=== PATIENT | male | born 1985 | race African-American/Black ===

== ENCOUNTER 2023-12-07 09:18 | Emergency (ER) | payer MEDICAID ==
[~2023-12-07] VITALS: Ht 172.7 cm; Wt 67.9 kg
[2023-12-07 09:38] VITALS: BP 97/56; PULSE 76; RESP 18; TEMP 97.9; O2SAT 97
== END 2023-12-07 10:11 | disposition home or self-care (01) ==
LOC: ER 09:18
DX: R19.03 Right lower quadrant abdominal swelling, mass and lump (principal)

== ENCOUNTER 2024-02-11 10:30 | Emergency (ER) | payer MEDICAID ==
[~2024-02-11] VITALS: Ht 175.3 cm; Wt 69.7 kg
[2024-02-11 11:00] VITALS: BP 130/89; PULSE 95; RESP 16; TEMP 98; O2SAT 93
== END 2024-02-11 12:10 | disposition left against medical advice (07) ==
LOC: ER 10:34
DX: S09.8XXA Other specified injuries of head, initial encounter (principal); W10.9XXA Fall (on) (from) unspecified stairs and steps, initial encounter; Y93.89 Activity, other specified; Y92.89 Other specified places as the place of occurrence of the external cause; Y99.8 Other external cause status

== ENCOUNTER 2024-06-30 08:32 | Inpatient (IN) | payer MEDICAID ==
[~2024-06-30] VITALS: Ht 172.7 cm; Wt 76.9 kg
--- NOTE | 2024-06-30 08:47 | ED.PDOC ---
GI ASSESSMENT HPI Comments 39M BIBA w/ no prior Hx associated to the c/c of N/V/D. Pt reports that he has been having N/V/D, since Monday night of 06/28/24. Pt notes that he stopped drinking alcohol but stated that he did drink alcohol night. EMS report the pt stating to them that he had dark Hematochezia and Hematemesis. Social Hx of rare alcohol use, and marijuana use, but denies tobacco use. Denies chills, fever, SOB, CP or other associated symptoms, modifiers, or recent injuries at this time. Chief Complaint: Abdominal Pain Time Seen by MD: 08:35 Primary Care Provider: unknown Reviewed Notes: Nurses Notes, Developer Analyst Notes, Medications, Allergies Allergies: Coded Allergies: NO KNOWN ALLERGIES (Unverified , 10/29/14) Information Source: Patient, Emergency Med Personnel Mode of Arrival: EMS Timing: Days Duration: Since onset, Days Prehospital treatment: None Quality: None Vomitus: Bilious, Bloody (Dark red) Stool: Blood Streaked (Dark red), Loose Severity: Moderate Recent: None Recent Hx of: None Pain Location: None Associated sign and symptoms: Nausea, Vomiting, Diarrhea, Hematemesis, Hematochezia Past Medical History PAST MEDICAL HISTORY: Denies Surgical History: Denies all surgeries Family History Family History: Reviewed,noncontributory to illness, Unknown Social History Smoker: Non-Smoker Alcohol: Rarely Drugs: Marijuana Lives In: Home Constitutional: denies: chills, diaphoresis, fatigue, fever, malaise, sweats, weakness, others EENTM: denies: blurred vision, double vision, ear bleeding, ear discharge, ear drainage, ear pain, ear ringing, eye pain, eye redness, hearing loss, mouth pain, mouth swelling, nasal discharge, nose bleeding, nose congestion, nose pain, photophobia, tearing, throat pain, throat swelling, voice changes, others Respiratory: denies: cough, hemoptysis, orthopnea, SOB at rest, shortness of breath, SOB with excertion, stridor, wheezing, others Cardiovascular: denies: chest pain, dizzy spells, diaphoresis, Dyspnea on exertion, edema, irregular heart beat, left arm pain, lightheadedness, palpitations, PND, syncope, others Gastrointestinal: reports: blood streaked bowels, diarrhea, hematemesis, nausea , vomiting; denies: abdomen distended, abdominal pain, constipated, dysphagia, difficulty swallowing, melena, poor appetite, poor fluid intake, rectal bleeding, rectal pain, others Genitourinary: denies: burning, dysuria, flank pain, frequency, hematuria, incontinence, penile discharge, penile sore, pain, testicle pain, testicle swelling, urgency, others Neurological: denies: dizziness, fainting, headache, left sided numbness, left sided weakness, numbness, paresthesia, pre-existing deficit, right sided numbness, right sided weakness, seizure, speech problems, tingling, tremors, weakness, others Musculoskeletal: denies: back pain, gout, joint pain, joint swelling, muscle pain, muscle stiffness, neck pain, others Integumetry: denies: bruises, change in color, change in hair/nails, dryness, laceration, lesions, lumps, rash, wounds, others Allergic/Immunocompromised: denies: Difficulty Healing, Frequent Infections, Hives, Itching, others Hematologic/Lymphatic: denies: anemia, blood clots, easy bleeding, easy bruising, swollen glands, others Endocrine: denies: excessive hunger, excessive sweating, excessive thirst, excessive urination, flushing, intolerance to cold, intolerance to heat, unexplained weight gain, unexplained weight loss, others Psychiatric: denies: anxiety, bipolar disorder, depression, hopeless, panic disorder, schizophrenia, sleepless, suicidal, others All Other Systems: Reviewed and Negative Physical Exam General Appearance: Moderate Distress, Normal HEENT: Normal ENT Inspection, Pharynx Normal, TMs Normal Neck: Full Range of Motion, Non-Tender, Normal, Normal Inspection Respiratory: Chest Non-Tender, Lungs Clear, No Accessory Muscle Use, No Respiratory Distress, Normal Breath Sounds Cardiovascular: No Edema, No JVD, No Murmur, No Gallop, Normal Peripheral Pulses, Regular Rate/Rhythm Breast Exam: Deferred Gastrointestinal: No Organomegaly, Non Tender, No Pulsatile Mass, Normal Bowel Sounds, Soft Genitalia: Deferred Pelvic: Deferred Rectal: Deferred Extremities: No calf tenderness, Normal capillary refill, Normal inspection, Normal range of motion, Non-tender, No pedal edema Musculoskeletal : Apperance: Normal Neurologic: Alert, enamel pulverizer II-XII nml as Tested, No Motor Deficits, Normal Affect, Normal Mood, No Sensory Deficits Cerebellar Function: NOT DONE Reflexes: NOT DONE Skin: Dry, Normal Color, Warm Peripheral Pulses: 3+ Radial (R), 3+ Radial (L) Lymphatic: No Adenopathy Was a procedure done? Was a procedure done?: No GI differential Dx Differential Diagnosis: Constipation, Diverticular disease, Esophagitis, Gastritis/PUD, Gastroenteritis X-Ray, Labs, Meds, VS Vital Signs Date Time Temp Pulse Resp B/P (MAP) Pulse Ox O2 Delivery O2 Flow Rate FiO2 06/30/24 09:37 78 18 122/74 06/30/24 09:07 125 24 115/79 06/30/24 08:34 97.7 127 18 114/80 (91) 100 Lab Test 06/30/24 08:57 Range/Units White Blood Count 11.8 H 4.4-10.8 10^3/uL Red Blood Count 3.19 L 4.5-5.90 10^6/uL Hemoglobin 9.8 L 13.5-17.5 g/dL Hematocrit 29.5 L 41.0-53.0 % Mean Corpuscular Volume 92.5 80.0-100.0 fL Mean Corpuscular Hemoglobin 30.8 28.0-32.0 pg Mean Corpuscular Hemoglobin Concent 33.3 32.0-36.0 g/dL Red Cell Distribution Width 13.5 11.8-14.3 % Platelet Count 249 140-450 10^3/uL Mean Platelet Volume 9.7 6.9-10.8 fL Neutrophils (%) (Auto) 84.0 H 37.0-80.0 % Lymphocytes (%) (Auto) 10.4 10.0-50.0 % Monocytes (%) (Auto) 5.4 0.0-12.0 % Eosinophils (%) (Auto) 0.0 0.0-7.0 % Basophils (%) (Auto) 0.2 0.0-2.0 % Neutrophils # (Auto) 9.9 H 1.6-8.6 10 ^3/uL Lymphocytes # (Auto) 1.2 0.4-5.4 10 ^3/uL Monocytes # (Auto) 0.6 0-1.3 10 ^3/uL Eosinophils # (Auto) 0 0-0.8 10 ^3/uL Basophils # (Auto) 0 0-0.2 10 ^3/uL Nucleated Red Blood Cells 0.0 % Sodium Level Pending Potassium Level Pending Chloride Level Pending Carbon Dioxide Level Pending Anion Gap Pending Blood Urea Nitrogen Pending Creatinine Pending Glomerular Filtration Rate Calc Pending BUN/Creatinine Ratio Pending Serum Glucose Pending Calcium Level Pending Current Medications Medications (Trade) Dose Ordered Sig/Janine Route Start Time Stop Time Status Last Admin Ondansetron HCl (Zofran) 4 mg ONCE ONCE IV 06/30/24 08:45 06/30/24 08:46 DC 06/30/24 09:07 Sodium Chloride 1,000 ml @ 1,000 mls/hr Q1H ONCE IVB 06/30/24 08:45 06/30/24 09:44 DC 06/30/24 09:05 Morphine Sulfate 4 mg ONCE ONCE IV 06/30/24 08:45 06/30/24 08:46 DC 06/30/24 09:07 Patient alert. Came in because of nausea vomiting. Uses marijuana Vitals stable. Abdomen is soft nontender. Establish intravenous access. Was given fluids. Was given pain medication. Was given Zofran. Reviewed his previous visit. WBC slightly elevated. Anemia. GI consultation for endoscopy. Counseled patient on effects of smoking marijuana for 15 minutes Explained to the patient. Continue cardiac monitoring. Time of 1ST Reevaluation: 09:05 Reevaluation 1ST: Unchanged Patient Education/Counseling: Diagnosis, Treatment, Prognosis Family Education/Counseling: No Family Present Departure 1 Departure Time of Disposition: 09:51 Impression: Primary Impression: Severe anemia Additional Impression: Gastroenteritis Disposition: 09 ADMITTED INPATIENT Admit to: Med Surg Condition: Guarded Critical Care Note Critical Care Time?: No Stability Stability form required: No I personally scribed for REYNA JERONIMO MD ([email or web address]) on 06/30/24 at 08:47. Electronically submitted by Jason Hayden ([email or web address]). REYNA JERONIMO MD Jun 30, 2024 08:47
[2024-06-30] MEDS: SODIUM CHLORIDE 0.9% 1,000 ML IVB ONE (09:05)
[2024-06-30] MEDS: ONDANSETRON HCL 4 MG/2 ML VIAL IV ONE (09:07)
[2024-06-30] MEDS: MORPHINE SULFATE 4 MG/ML SYR/VIAL IV ONE (09:07)
[2024-06-30 09:39] VITALS: PULSE 125; RESP 22; O2SAT 96
[2024-06-30 09:40] LABS: Basophils # (auto) 0 10 ^3/uL (0-0.2); Basophils % (auto) 0.2 % (0.0-2.0); Eosinophils # (auto) 0 10 ^3/uL (0-0.8); Hematocrit 29.5 % (41.0-53.0); Hemoglobin 9.8 g/dL (13.5-17.5); Lymphocytes # (auto) 1.2 10 ^3/uL (0.4-5.4); Lymphocytes % (auto) 10.4 % (10.0-50.0); Mean Corpuscular Hemoglobin 30.8 pg (28.0-32.0); Mean Corpuscular Hgb Conc. 33.3 g/dL (32.0-36.0); Mean Corpuscular Volume 92.5 fL (80.0-100.0); Monocytes # (auto) 0.6 10 ^3/uL (0-1.3); Monocytes % (auto) 5.4 % (0.0-12.0); Neutrophils # (auto) 9.9 10 ^3/uL (1.6-8.6); Platelet Count (auto) 249 10^3/uL (140-450); Red Blood Cells 3.19 10^6/uL (4.5-5.90); Red Cell Distribution Width 13.5 % (11.8-14.3); White Blood Cell 11.8 10^3/uL (4.4-10.8)
[2024-06-30 09:49] LABS: Chloride 99 mmol/L (98-107); Potassium 3.8 mmol/L (3.5-5.1); Sodium 136 mmol/L (136-145)
[2024-06-30 09:50] LABS: Anion Gap 13 (5-15); Carbon Dioxide 24 mmol/L (20-31)
[2024-06-30 09:51] LABS: Calcium 9.4 mg/dL (8.7-10.4)
[2024-06-30 09:56] LABS: BUN/Creatinine Ratio 12.1 (10.0-20.0); Blood Urea Nitrogen 15 mg/dL (9-23)
[2024-06-30 09:58] LABS: Glucose 224 mg/dL (74-106)
[2024-06-30 10:55] VITALS: PULSE 96; RESP 22; O2SAT 98
--- NOTE | 2024-06-30 13:53 | DVH ---
Exam: CT CT AB PEL WO CON-NO ORAL OR IV History: abd pain Comparison Study: None Technique: Multidetector spiral CT of the abdomen was performed from lung bases to pubic symphysis. Imaging was performed without IV contrast. Axial, coronal and sagittal multiplanar reformats were ob tained from the axial data set by the technologist. Radiation Dose : 1. Abdomen/Pelvis: CTDIvol 6.1 mGy, DLP 326.21 mGy*cm. Findings: Evaluation of solid organs is limited due to lack of intravenous contrast use. Lung Bases: No acute or significant lung base finding. Normal heart size. No pleural or pericardial effusion. Liver: The liver is normal in size. No focal lesions. Gallbladder and Biliary Tree: Unremarkable Spleen: Unremarkable Pancreas: The pancreas is grossly normal in appearance. Adrenal Glands: Unremarkable Kidneys: Kidneys are grossly normal without calculi or hydronephrosis. Bladder: Grossly unremarkable for degree of distention. Bowel: The stomach is grossly normal in appearance. Small bowel and colon are normal in caliber and d istribution. The appendix is not visualized; however, no secondary findings of acute appendicitis id entified. Ascites: Absent Lymphadenopathy: No mesenteric, retroperitoneal or periportal lymphadenopathy. Abdominal Wall and Mesentery: Unremarkable. Vasculature: The visualized abdominal aorta is normal in size and caliber. Evaluation of abdominal a nd pelvic vessels is limited due to lack of intravenous contrast. Pelvic Organs: Unremarkable Musculoskeletal: No aggressive focal bony lesions, acute fractures or dislocation. IMPRESSION: 1. No acute abdominal or pelvic findings. Radiation optimization: All CT scans at this facility use at least one of these dose optimization unruly hniques: automated exposure control mA and/or kV adjustment per patient size (includes targeted exam s where dose is matched to clinical indication) or iterative reconstruction.
[2024-06-30] MEDS ORDERED: ONDANSETRON HCL 4 MG/2 ML VIAL IV PRN (14:00)
[2024-06-30] MEDS ORDERED: ACETAMINOPHEN 325 MG TAB PO PRN (14:00)
--- NOTE | 2024-06-30 14:04 | DVHHP2 ---
History of Present Illness Reason for Visit: Nausea vomiting and diarrhea History of Present Illness This 39-year-old male with no significant medical history presents in the ED with a chief complaint nausea, vomiting, diarrhea x2 days. Patient reports symptoms is associated with generalized abdominal pain, hematemesis, and melena. Patient states drinks vodka every week for many years. He also admits to marijuana use. Past Medical History Denies Past Surgical History Fibula Family History Reviewed, non-contributory to the management of this case. ALCOHOL: occassional Drugs: Marijuana Review of Systems Constitutional: Yes: Weakness, Malaise; No: Fever, Chills, Sweats, Other Eyes: No: Pain, Vision change, Conjunctivae inflammation, Eyelid inflammation, Other, Redness ENT: No: Ear pain, Ear discharge, Nose pain, Nose discharge, Nose congestion, Mouth pain, Mouth swelling, Throat pain, Throat swelling, Other Respiratory: No: Cough, Dry, Shortness of breath, SOB with excertion, Wheezing, Hemoptysis, Pleuritic Pain, Sputum, Wheezing, Other Cardiovascular: No: Chest Pain, Palpitations, Orthopnea, Paroxysmal Noc. Dyspnea, Edema, Lt Headedness, Other Gastrointestinal: Nausea, Vomiting, Abdominal Pain, Diarrhea, Melena, Hematochezia; No: Constipation, Other Genitourinary: No Dysuria, No Frequency, No Incontinence, No Hematuria, No Retention, No Other Musculoskeletal: No: other, neck pain, shoulder pain, arm pain, back pain, hand pain, leg pain, foot pain Skin: No: Rash, Lesions, Jaundice, Bruising, Other Neurological: No: Weakness, Numbness, Incoordination, Change in speech, Confusion, Seizures, Other Allergies: Coded Allergies: NO KNOWN ALLERGIES (Unverified , 10/29/14) Medications Current Medications Medications Dose Ordered Sig/Janine Route Start Time Stop Time Status Last Admin Dose Admin Pantoprazole Sodium 40 mg DAILY IV 07/01/24 10:00 UNV Exam Vital Signs Vital Signs Date Time Temp Pulse Resp B/P (MAP) Pulse Ox O2 Delivery O2 Flow Rate FiO2 06/30/24 13:37 98 18 119/47 (71) 100 06/30/24 10:55 Room Air* 0 21 06/30/24 10:52 98.3 98.3 General Appearance: Alert, Oriented X3, Cooperative HEENT: Atraumatic, PERRLA, EOMI, Mucous membr. moist/pink Respiratory: Clear to auscultation, Normal air movement Cardiovascular: Regular rate, Normal S1, Normal S2 Abdominal: Normal bowel sounds, Soft, Other (Tenderness in epigastric) Extremities: No clubbing, No cyanosis, No edema, Normal pulses, No tenderness/swelling Skin: No rashes, No breakdown, No significant lesion Neuro: Normal gait, Normal speech, Strength at 5/5 X4 ext, Normal tone Psych/Mental Status: Mental status NL Labs/Xrays Labs Test 06/30/24 08:57 Range/Units White Blood Count 11.8 H 4.4-10.8 10^3/uL Red Blood Count 3.19 L 4.5-5.90 10^6/uL Hemoglobin 9.8 L 13.5-17.5 g/dL Hematocrit 29.5 L 41.0-53.0 % Mean Corpuscular Volume 92.5 80.0-100.0 fL Mean Corpuscular Hemoglobin 30.8 28.0-32.0 pg Mean Corpuscular Hemoglobin Concent 33.3 32.0-36.0 g/dL Red Cell Distribution Width 13.5 11.8-14.3 % Platelet Count 249 140-450 10^3/uL Mean Platelet Volume 9.7 6.9-10.8 fL Neutrophils (%) (Auto) 84.0 H 37.0-80.0 % Lymphocytes (%) (Auto) 10.4 10.0-50.0 % Monocytes (%) (Auto) 5.4 0.0-12.0 % Eosinophils (%) (Auto) 0.0 0.0-7.0 % Basophils (%) (Auto) 0.2 0.0-2.0 % Neutrophils # (Auto) 9.9 H 1.6-8.6 10 ^3/uL Lymphocytes # (Auto) 1.2 0.4-5.4 10 ^3/uL Monocytes # (Auto) 0.6 0-1.3 10 ^3/uL Eosinophils # (Auto) 0 0-0.8 10 ^3/uL Basophils # (Auto) 0 0-0.2 10 ^3/uL Nucleated Red Blood Cells 0.0 % Sodium Level 136 136-145 mmol/L Potassium Level 3.8 3.5-5.1 mmol/L Chloride Level 99 98-107 mmol/L Carbon Dioxide Level 24 20-31 mmol/L Anion Gap 13 5-15 Blood Urea Nitrogen 15 9-23 mg/dL Creatinine 1.24 0.700-1.30 mg/dL Glomerular Filtration Rate Calc 75 >90 mL/min BUN/Creatinine Ratio 12.1 10.0-20.0 Serum Glucose 224 H 74-106 mg/dL Calcium Level 9.4 8.7-10.4 mg/dL PROCEDURE(s): ABPL - CT AB PEL WO CON-NO ORAL OR IV REASON: abd pain ORDER NUMBER(s): [id number], ACCESSION NUMBER(s): [id number] Exam: CT CT AB PEL WO CON-NO ORAL OR IV History: abd pain Comparison Study: None Technique: Multidetector spiral CT of the abdomen was performed from lung bases to pubic symphysis. Imaging was performed without IV contrast. Axial, coronal and sagittal multiplanar reformats were obtained from the axial data set by the technologist. Radiation Dose : 1. Abdomen/Pelvis: CTDIvol 6.1 mGy, DLP 326.21 mGy*cm. Findings: Evaluation of solid organs is limited due to lack of intravenous contrast use. Lung Bases: No acute or significant lung base finding. Normal heart size. No pleural or pericardial effusion. Liver: The liver is normal in size. No focal lesions. Gallbladder and Biliary Tree: Unremarkable Spleen: Unremarkable Pancreas: The pancreas is grossly normal in appearance. Adrenal Glands: Unremarkable Kidneys: Kidneys are grossly normal without calculi or hydronephrosis. Bladder: Grossly unremarkable for degree of distention. Bowel: The stomach is grossly normal in appearance. Small bowel and colon are normal in caliber and distribution. The appendix is not visualized; however, no secondary findings of acute appendicitis identified. Ascites: Absent Lymphadenopathy: No mesenteric, retroperitoneal or periportal lymphadenopathy. Abdominal Wall and Mesentery: Unremarkable. Vasculature: The visualized abdominal aorta is normal in size and caliber. Evaluation of abdominal and pelvic vessels is limited due to lack of intravenous contrast. Pelvic Organs: Unremarkable Musculoskeletal: No aggressive focal bony lesions, acute fractures or dislocation. IMPRESSION: 1. No acute abdominal or pelvic findings. Assessment/Plan Assessment/Plan # Rule out GI bleed # acute abdominal pain # possible colitis Admit to medical unit CT abd/pelvis pending NPO except meds PPI GI consult Empiric antibiotic ceftriaxone and metronidazole Stool for occult blood Check etoh # cannabis hyperemesis syndrome # marijuana use # N/V/D IV fluid UDS Antiemetics Marijuana use cessation counseled Medical plan discussed with patient and RN Plan discussed with: Patient My Orders Orders - VILLA WILDER Procedure Category Date Status Time Ct Ab Pel Wo Con-No CT 06/30/24 Resulted Oral Or Iv 12:04 Urine Ethanol LAB 06/30/24 Logged 13:48 * Gi [facility] [employer]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 CONS 06/30/24 Transmitted 13:48 Pantoprazole PHA 07/01/24 Logged (Protonix) 10:00 Pantoprazole PHA 06/30/24 Logged (Protonix) 14:00 Metoclopramide PHA 06/30/24 Logged Injection (Reglan 14:00 Urinalysis LAB 06/30/24 Logged 13:48 Stool Occult Blood LAB 06/30/24 Logged 13:51 Stool Bacterial KELLY 06/30/24 Logged Culture 13:51 Clostridium Difficile KELLY 06/30/24 Logged Toxin 13:51 Admit ADMIT 06/30/24 Verified 13:52 Code Status CODE 06/30/24 Verified 13:52 0.9% Ns 1000 Ml PHA 06/30/24 Verified 14:00 Hydrocodone-Acet PHA 06/30/24 Verified 5/325mg Tab (Garretson 14:00 Ondansetron Hcl PHA 06/30/24 Verified (Zofran) 14:00 Complete Blood Count LAB 07/01/24 Verified 04:00 Condition: Fair LOBITO 06/30/24 Verified 13:52 Acetaminophen Tablet PHA 06/30/24 Verified (Tylenol Tablet) 14:00 Morphine Sulfate PHA 06/30/24 Verified Injection 14:00 Basic Metabolic Panel LAB 07/01/24 Verified 04:00 Npo Except For LOBITO 06/30/24 Verified Medications 13:52 Date of Service: Jun 30, 2024 Billing Provider: VILLA WILDER Common Visit Codes: [id number] INP/OBS CARE (HIGH) VILLA WILDER Jun 30, 2024 14:04
[2024-06-30 14:31] LABS: Albumin 4.1 g/dL (3.2-4.8)
--- NOTE | 2024-06-30 14:31 | DVHINCON2 ---
Date of service: Jun 30, 2024 Referring Physician ray Matson Reason for Consultation Abdominal pain nausea vomiting diarrhea History of Present Illness This 39-year-old male presented with complaints of abdominal pain nausea vomiting diarrhea for about more than three days since Monday Discussed a moderate heavy drinking and had stopped for some time but restarted again tonight No history of Any unusual food ingestion no history of any fever chills or other systemic symptoms Had some mild hematemesis and hematochezia Past Medical History Unremarkable Past Surgical History None Family History Cancer in father and mother details unknown Social History Smoking including marijuana and drinking Allergies: Coded Allergies: NO KNOWN ALLERGIES (Unverified , 10/29/14) Current Medications Current Medications Medications (Trade) Dose Ordered Sig/Janine Route PRN Reason Start Time Stop Time Status Last Admin Pantoprazole Sodium (Protonix) 40 mg DAILY IV 07/01/24 10:00 UNV Sodium Chloride 1,000 ml @ 100 mls/hr Q10H IV 06/30/24 14:00 UNV Acetaminophen/ Hydrocodone Bitart ([place] 5/325MG Tab) 1 tab Q4HP PRN PO MODERATE PAIN (4-6 PAIN SCALE) 06/30/24 14:00 UNV Ondansetron HCl (Zofran) 4 mg Q4HP PRN IV NAUSEA / VOMITING 06/30/24 14:00 UNV Acetaminophen (Tylenol Tablet) 650 mg Q6HP PRN PO PAIN SCALE 1-3 OR TEMP>100.4 06/30/24 14:00 UNV Morphine Sulfate 2 mg Q4HPRN PRN IV SEVERE PAIN (7-10 PAIN SCALE) 06/30/24 14:00 UNV Ceftriaxone Sodium 50 ml @ 100 mls/hr DAILY@09 IV 07/01/24 09:00 UNV Metronidazole 100 ml @ 100 mls/hr Q8HR IV 06/30/24 22:00 UNV Review of Systems Noncontributory Vital Signs Vital Signs Date Time Temp Pulse Resp B/P (MAP) Pulse Ox O2 Delivery O2 Flow Rate FiO2 06/30/24 13:37 98 18 119/47 (71) 100 06/30/24 10:55 Room Air* 0 21 06/30/24 10:52 98.3 98.3 Physical Exam Originally built and nourished male in no acute distress but uncomfortable from the pain Vitals stable HEENT examination unremarkable Lungs clear Cardiovascular unremarkable Abdomen soft mild tenderness in the epigastrium and both lower quadrants No rigidity no guarding no masses bowel sounds norm al Extremities no edema Neuro grossly intact Labs/Diagnostic Data Labs Test 06/30/24 08:57 Range/Units White Blood Count 11.8 H 4.4-10.8 10^3/uL Red Blood Count 3.19 L 4.5-5.90 10^6/uL Hemoglobin 9.8 L 13.5-17.5 g/dL Hematocrit 29.5 L 41.0-53.0 % Mean Corpuscular Volume 92.5 80.0-100.0 fL Mean Corpuscular Hemoglobin 30.8 28.0-32.0 pg Mean Corpuscular Hemoglobin Concent 33.3 32.0-36.0 g/dL Red Cell Distribution Width 13.5 11.8-14.3 % Platelet Count 249 140-450 10^3/uL Mean Platelet Volume 9.7 6.9-10.8 fL Neutrophils (%) (Auto) 84.0 H 37.0-80.0 % Lymphocytes (%) (Auto) 10.4 10.0-50.0 % Monocytes (%) (Auto) 5.4 0.0-12.0 % Eosinophils (%) (Auto) 0.0 0.0-7.0 % Basophils (%) (Auto) 0.2 0.0-2.0 % Neutrophils # (Auto) 9.9 H 1.6-8.6 10 ^3/uL Lymphocytes # (Auto) 1.2 0.4-5.4 10 ^3/uL Monocytes # (Auto) 0.6 0-1.3 10 ^3/uL Eosinophils # (Auto) 0 0-0.8 10 ^3/uL Basophils # (Auto) 0 0-0.2 10 ^3/uL Nucleated Red Blood Cells 0.0 % Sodium Level 136 136-145 mmol/L Potassium Level 3.8 3.5-5.1 mmol/L Chloride Level 99 98-107 mmol/L Carbon Dioxide Level 24 20-31 mmol/L Anion Gap 13 5-15 Blood Urea Nitrogen 15 9-23 mg/dL Creatinine 1.24 0.700-1.30 mg/dL Glomerular Filtration Rate Calc 75 >90 mL/min BUN/Creatinine Ratio 12.1 10.0-20.0 Serum Glucose 224 H 74-106 mg/dL Calcium Level 9.4 8.7-10.4 mg/dL Plasma/Serum Blood Alcohol 4.6 <10 mg/dL Assessment 39-year-old male with history of moderate drinking and some smoking marijuana etc. admitted with complaints of nausea vomiting and diarrhea no history of any unusual food ingestion no fevers symptoms systemic symptoms no other URI symptoms. Physical examination showed there was tenderness in the epigastrium and both lower quadrants. Labs were essentially unremarkable except for slightly increased glucose white count and hemoglobin is normal CT scan showed no gross abnormalities but done without contrast Clinical impression Probable gastroenteritis Possible mild pancreatitis or peptic ulcer can not be excluded Plan/Recommendation Liver panel Lipase Stool studies for O&P and C&S if diarrhea persists Check on the blood sugars Supportive treatment with IV fluids IV Protonix and symptomatic treatment May need further GI intervention if bleeding or other symptoms persist Thank you Dr. Corona Layne discussed with: Patient IRISH CHRISTIANSON MD Jun 30, 2024 14:31
[2024-06-30 14:32] LABS: Bilirubin, Direct 0.2 mg/dL (<0.3); Bilirubin, Total 0.5 mg/dL (0.2-1.0); Total Protein 5.9 g/dL (5.7-8.2)
[2024-06-30] MEDS: SODIUM CHLORIDE 0.9% 1,000 ML IV SCH (15:01)
[2024-06-30] MEDS: METOCLOPRAMIDE HCL 5MG/ml INJ 2ml VIAL IV ONE (15:17)
[2024-06-30] MEDS: cefTRIAXone 1GM/50ML D5W 50 ML IV ONE (15:17)
[2024-06-30] MEDS: PANTOPRAZOLE 40 MG/10 ML VIAL INJ IV ONE (15:17)
[2024-06-30] MEDS: metroNIDAZOLE 500MG/100ML 100 ML IV ONE (16:21)
[2024-06-30] MEDS: metroNIDAZOLE 500MG/100ML 100 ML IV SCH (22:35)
[2024-07-01 06:54] LABS: Calcium 9.2 mg/dL (8.7-10.4); Chloride 105 mmol/L (98-107); Sodium 139 mmol/L (136-145)
[2024-07-01 06:55] LABS: Anion Gap 8 (5-15); Carbon Dioxide 26 mmol/L (20-31)
[2024-07-01 06:57] LABS: Potassium 3.3 mmol/L (3.5-5.1)
[2024-07-01 07:00] LABS: BUN/Creatinine Ratio 9.5 (10.0-20.0); Blood Urea Nitrogen 9 mg/dL (9-23)
[2024-07-01 07:01] LABS: Glucose 107 mg/dL (74-106)
[2024-07-01 07:02] LABS: Basophils # (auto) 0.1 10 ^3/uL (0-0.2); Basophils % (auto) 0.6 % (0.0-2.0); Eosinophils # (auto) 0 10 ^3/uL (0-0.8); Eosinophils % (auto) 0.1 % (0.0-7.0); Hemoglobin 7.8 g/dL (13.5-17.5); Lymphocytes # (auto) 1.8 10 ^3/uL (0.4-5.4); White Blood Cell 8.6 10^3/uL (4.4-10.8)
[2024-07-01 07:05] LABS: Hematocrit 23.3 % (41.0-53.0); Lymphocytes % (auto) 20.5 % (10.0-50.0); Mean Corpuscular Hemoglobin 31.2 pg (28.0-32.0); Mean Corpuscular Hgb Conc. 33.6 g/dL (32.0-36.0); Monocytes # (auto) 0.5 10 ^3/uL (0-1.3); Monocytes % (auto) 5.6 % (0.0-12.0); Neutrophils # (auto) 6.3 10 ^3/uL (1.6-8.6); Neutrophils % (auto) 73.2 % (37.0-80.0); Platelet Count (auto) 206 10^3/uL (140-450); Red Blood Cells 2.51 10^6/uL (4.5-5.90); Red Cell Distribution Width 13.4 % (11.8-14.3)
[2024-07-01] MEDS: cefTRIAXone 1GM/50ML D5W 50 ML IV SCH (09:14)
[2024-07-01] MEDS: PANTOPRAZOLE 40 MG/10 ML VIAL INJ IV SCH (10:17)
--- NOTE | 2024-07-01 11:55 | DVHPN2 ---
Subjective The patient is seen and examined at bed side. No hematemesis. Reviewed: Care Plan, H&P, Labs, Medications, Previous Orders, Radiology Changes from previous H/P or p: No Changes Eyes: No Pain, No Vision change, No Conjunctivae inflammation, No Eyelid inflammation, No Other, No Redness ENT: No Ear pain, No Ear discharge, No Nose pain, No Nose discharge, No Nose congestion, No Mouth pain, No Mouth swelling, No Throat pain, No Throat swelling, No Other Cardiovascular: No Chest Pain, No Palpitations, No Orthopnea, No Paroxysmal Noc. Dyspnea, No Edema, No Lt Headedness, No Other Respiratory: No Cough, No Dry, No Shortness of breath, No SOB with excertion, No Wheezing, No Hemoptysis, No Pleuritic Pain, No Sputum, No Other Gastrointestinal: Nausea, Vomiting, Abdominal Pain, Diarrhea; No Constipation; Melena, Hematochezia; No Other Genitourinary: No Dysuria, No Frequency, No Incontinence, No Hematuria, No Retention, No Other Musculoskeletal: No other, No neck pain, No shoulder pain, No arm pain, No back pain, No hand pain, No leg pain, No foot pain Skin: No Rash, No Lesions, No Jaundice, No Bruising, No Other Objective Vitals Vital Signs Date Time Temp Pulse Resp B/P (MAP) Pulse Ox O2 Delivery O2 Flow Rate FiO2 07/01/24 09:30 80 16 113/57 (75) 100 07/01/24 07:56 Room Air* 0 21 06/30/24 20:51 98.7 98.7 Intake/Output Intake and Output 07/01/24 07:00 Intake Total 450 ml Balance 450 ml Intake IV Total 450 ml General Appearance: Alert, Oriented X3, Cooperative, No acute distress HEENT: Atraumatic, PERRLA, EOMI, Mucous membr. moist/pink Neck: Supple Lungs: Clear to auscultation, Normal air movement Cardiovascular: Regular rate, Normal S1, Normal S2, No murmurs, Gallops, Rubs Abdomen: Normal bowel sounds, Soft, No tenderness, No hepatospenomegaly Neuro: Cranial nerves 3-12 NL Psych/Mental Status: Mental status NL Medications Current Medications Medications Dose Ordered Sig/Janine Route Start Time Stop Time Status Last Admin Dose Admin Pantoprazole Sodium 40 mg DAILY IV 07/01/24 10:00 12/9/24 10:17 40 MG Sodium Chloride 1,000 ml @ 100 mls/hr Q10H IV 06/30/24 14:00 07/01/24 10:17 100 MLS/HR Acetaminophen/ Hydrocodone Bitart 1 tab Q4HP PRN PO 06/30/24 14:00 Ondansetron HCl 4 mg Q4HP PRN IV 06/30/24 14:00 Acetaminophen 650 mg Q6HP PRN PO 06/30/24 14:00 Morphine Sulfate 2 mg Q4HPRN PRN IV 06/30/24 14:00 Ceftriaxone Sodium 50 ml @ 100 mls/hr DAILY@09 IV 07/01/24 09:00 07/01/24 09:14 100 MLS/HR Metronidazole 100 ml @ 100 mls/hr Q8HR IV 06/30/24 22:00 07/01/24 05:37 100 MLS/HR Laboratory Results Laboratory Tests 07/01/24 06:07 Chemistry Test 07/01/24 06:07 Calcium Level 9.2 mg/dL (8.7-10.4) Labs and/or images reviewed: Labs reviewed by me Assessment/Plan Assessment/Plan # Rule out GI bleed # acute abdominal pain # possible colitis # cannabis hyperemesis syndrome # marijuana use # N/V/D Continuing current management. Continuing with IV fluid. We will follow up with urine drug screen. Continuing Zofran p.r.n. for nausea and vomiting Continuing IV Protonix We will follow up with UDS CT abdomen pelvis without contrast showed no abnormality Marijuana use cessation counseled more than 15 minute Waiting for GI specialist to see the patient. This medical document was created using an electronic medical record system with [employer] direct computerized dictation system. Although this document has been carefully reviewed, there may still be some phonetic and typographical errors. These areas are purely typographical due to imperfections of the software programs, and do not reflect any compromise in the patient's medical care. Plan discussed with: Patient Date of Service: Jul 01, 2024 Billing Provider: MARY FERNANDEZ MD Common Visit Codes: [id number] INP/OBS CARE(HIGH) MARY FERNANDEZ MD Jul 01, 2024 11:55
[2024-07-01 12:49] VITALS: BP 126/53; PULSE 87; RESP 20; TEMP 98.2; O2SAT 99
[2024-07-01 13:17] VITALS: PULSE 87; RESP 20
[2024-07-01] MEDS: HYDROcodone-ACET 5/325MG TAB PO PRN (13:25)
[2024-07-01 17:00] VITALS: BP 111/77; PULSE 89; RESP 20; TEMP 98; O2SAT 100
[2024-07-01 20:00] VITALS: PULSE 72
[2024-07-01] MEDS: MORPHINE SULFATE INJ 2 MG/ml SYRG IV PRN (20:17)
[2024-07-01 21:00] VITALS: BP 109/59; PULSE 74; RESP 16; TEMP 98.3; O2SAT 98
[2024-07-02] VITALS (7 sets, daily range): BP systolic 89–125; BP diastolic 52–69; PULSE 64–89; RESP 16–20; TEMP 97.9–98.4; O2SAT 93–100
[2024-07-02 05:42] LABS: Basophils # (auto) 0.1 10 ^3/uL (0-0.2); Eosinophils # (auto) 0 10 ^3/uL (0-0.8); Lymphocytes # (auto) 2.6 10 ^3/uL (0.4-5.4); Mean Corpuscular Volume 93.9 fL (80.0-100.0); Monocytes # (auto) 0.4 10 ^3/uL (0-1.3); Neutrophils # (auto) 3.9 10 ^3/uL (1.6-8.6); White Blood Cell 6.9 10^3/uL (4.4-10.8)
[2024-07-02 05:46] LABS: Basophils % (auto) 0.9 % (0.0-2.0); Eosinophils % (auto) 0.5 % (0.0-7.0); Hematocrit 20.5 % (41.0-53.0); Lymphocytes % (auto) 37.8 % (10.0-50.0); Monocytes % (auto) 5.3 % (0.0-12.0); Neutrophils % (auto) 55.5 % (37.0-80.0); Platelet Count (auto) 189 10^3/uL (140-450); Red Blood Cells 2.18 10^6/uL (4.5-5.90); Red Cell Distribution Width 13.4 % (11.8-14.3)
[2024-07-02 06:02] LABS: Anion Gap 6 (5-15); Carbon Dioxide 29 mmol/L (20-31); Chloride 104 mmol/L (98-107); Hemoglobin 6.8 g/dL (13.5-17.5); Potassium 3.5 mmol/L (3.5-5.1); Sodium 139 mmol/L (136-145)
[2024-07-02 06:03] LABS: Calcium 9.1 mg/dL (8.7-10.4)
[2024-07-02 06:08] LABS: BUN/Creatinine Ratio 7.8 (10.0-20.0); Glucose 82 mg/dL (74-106)
[2024-07-02 06:16] LABS: Blood Urea Nitrogen 7 mg/dL (9-23)
[2024-07-02] MEDS: PANTOPRAZOLE 40 MG/10 ML VIAL INJ IV SCH (09:17)
[2024-07-02 09:55] LABS: Hematocrit 21.5 % (41.0-53.0); Hemoglobin 7.1 g/dL (13.5-17.5)
--- NOTE | 2024-07-02 13:19 | DVHPN2 ---
Reviewed: Care Plan, H&P, Labs, Medications, Previous Orders, Radiology Changes from previous H/P or p: No Changes Eyes: No Pain, No Vision change, No Conjunctivae inflammation, No Eyelid inflammation, No Other, No Redness ENT: No Ear pain, No Ear discharge, No Nose pain, No Nose discharge, No Nose congestion, No Mouth pain, No Mouth swelling, No Throat pain, No Throat swelling, No Other Cardiovascular: No Chest Pain, No Palpitations, No Orthopnea, No Paroxysmal Noc. Dyspnea, No Edema, No Lt Headedness, No Other Respiratory: No Cough, No Dry, No Shortness of breath, No SOB with excertion, No Wheezing, No Hemoptysis, No Pleuritic Pain, No Sputum, No Other Gastrointestinal: Nausea, Vomiting, Abdominal Pain, Diarrhea; No Constipation; Melena, Hematochezia; No Other Genitourinary: No Dysuria, No Frequency, No Incontinence, No Hematuria, No Retention, No Other Musculoskeletal: No other, No neck pain, No shoulder pain, No arm pain, No back pain, No hand pain, No leg pain, No foot pain Skin: No Rash, No Lesions, No Jaundice, No Bruising, No Other Objective Vitals Vital Signs Date Time Temp Pulse Resp B/P (MAP) Pulse Ox O2 Delivery O2 Flow Rate FiO2 07/02/24 09:07 97.9 67 18 107/69 (82) 100 97.9 07/01/24 13:17 Room Air* 0 21 Intake/Output Intake and Output 07/02/24 07:00 Intake Total 970 ml Output Total 200 ml Balance 770 ml Intake Oral 320 ml IV Total 650 ml Output Urine Total 200 ml # Voids 1 General Appearance: Alert, Oriented X3, Cooperative, No acute distress HEENT: Atraumatic, PERRLA, EOMI, Mucous membr. moist/pink Neck: Supple Lungs: Clear to auscultation, Normal air movement Cardiovascular: Regular rate, Normal S1, Normal S2, No murmurs, Gallops, Rubs Abdomen: Normal bowel sounds, Soft, No tenderness, No hepatospenomegaly Neuro: Cranial nerves 3-12 NL Psych/Mental Status: Mental status NL Medications Current Medications Medications Dose Ordered Sig/Janine Route Start Time Stop Time Status Last Admin Dose Admin Sodium Chloride 1,000 ml @ 100 mls/hr Q10H IV 06/30/24 14:00 07/01/24 10:17 100 MLS/HR Acetaminophen/ Hydrocodone Bitart 1 tab Q4HP PRN PO 06/30/24 14:00 07/01/24 13:25 1 TAB Ondansetron HCl 4 mg Q4HP PRN IV 06/30/24 14:00 Acetaminophen 650 mg Q6HP PRN PO 06/30/24 14:00 Morphine Sulfate 2 mg Q4HPRN PRN IV 06/30/24 14:00 07/01/24 20:17 2 MG Ceftriaxone Sodium 50 ml @ 100 mls/hr DAILY@09 IV 07/01/24 09:00 07/02/24 09:16 100 MLS/HR Metronidazole 100 ml @ 100 mls/hr Q8HR IV 06/30/24 22:00 07/02/24 05:52 100 MLS/HR Pantoprazole Sodium 40 mg BID IV 07/02/24 10:00 07/02/24 09:17 40 MG Laboratory Results Laboratory Tests 07/02/24 04:53 07/02/24 09:33 Chemistry Test 07/02/24 04:53 Calcium Level 9.1 mg/dL (8.7-10.4) Microbiology Microbiology Date/Time Source Procedure Growth Status 06/30/24 15:58 Blood Blood Culture - Preliminary NO GROWTH AFTER 24 HOURS OF INCUBATION. Resulted Labs and/or images reviewed: Labs reviewed by me, Image(s) reviewed by me Assessment/Plan Assessment/Plan Covering for Dr. Jackson # Rule out GI bleed: GI consult by appreciated # acute abdominal pain # possible colitis # cannabis hyperemesis syndrome # marijuana use # N/V/D #Chronic current alcohol abuse: Counseling # Anemia hemoglobin 7.1, patient refused blood transfusion, instead wants iron infusion Consult for GI Dr. Otilio Mandujano for possible EGD Plan discussed with: Patient Date of Service: Jul 02, 2024 Billing Provider: SALINAS GILLETTE MD Common Visit Codes: [id number] INP/OBS CARE(HIGH) SALINAS GILLETTE MD Jul 02, 2024 13:19
--- NOTE | 2024-07-02 14:24 | DVHPN2 ---
Subjective 39-year-old male admitted nausea vomiting with dark red emesis Monday and Monday. Patient's symptoms started after donating plasma on Monday per patient No nausea or vomiting at this time no hematemesis Patient also had loose stool with dark stool again Patient has abdominal pain left upper quadrant and epigastric area, occasionally radiating to the back Patient admits to heavy alcohol use. Patient also admits to marijuana use No EGD in past Reviewed: Care Plan, H&P, Labs, Medications, Previous Orders, Radiology Changes from previous H/P or p: No Changes Eyes: No Pain, No Vision change, No Conjunctivae inflammation, No Eyelid inflammation, No Other, No Redness ENT: No Ear pain, No Ear discharge, No Nose pain, No Nose discharge, No Nose congestion, No Mouth pain, No Mouth swelling, No Throat pain, No Throat swelling, No Other Cardiovascular: No Chest Pain, No Palpitations, No Orthopnea, No Paroxysmal Noc. Dyspnea, No Edema, No Lt Headedness, No Other Respiratory: No Cough, No Dry, No Shortness of breath, No SOB with excertion, No Wheezing, No Hemoptysis, No Pleuritic Pain, No Sputum, No Other Gastrointestinal: Nausea, Vomiting, Abdominal Pain, Diarrhea; No Constipation; Melena, Hematochezia; No Other Genitourinary: No Dysuria, No Frequency, No Incontinence, No Hematuria, No Retention, No Other Musculoskeletal: No other, No neck pain, No shoulder pain, No arm pain, No back pain, No hand pain, No leg pain, No foot pain Skin: No Rash, No Lesions, No Jaundice, No Bruising, No Other Objective Vitals Vital Signs Date Time Temp Pulse Resp B/P (MAP) Pulse Ox O2 Delivery O2 Flow Rate FiO2 07/02/24 13:00 98.1 74 16 105/52 (69) 100 98.1 07/02/24 08:00 Room Air* 0 21 Intake/Output Intake and Output 07/02/24 07:00 Intake Total 970 ml Output Total 200 ml Balance 770 ml Intake Oral 320 ml IV Total 650 ml Output Urine Total 200 ml # Voids 1 General Appearance: Alert, Oriented X3, Cooperative, No acute distress, mild distress, moderate distress, severe distress, Other HEENT: Atraumatic, PERRLA, EOMI, Mucous membr. moist/pink Neck: Supple Lungs: Clear to auscultation, Normal air movement, Other Cardiovascular: Regular rate, Normal S1, Normal S2, No murmurs, Gallops, Rubs, Other Abdomen: Normal bowel sounds, Soft, No tenderness (Mild left upper quadrant and epigastric tenderness), No hepatospenomegaly, No masses, Other Neuro: Cranial nerves 3-12 NL Psych/Mental Status: Mental status NL Medications Current Medications Medications Dose Ordered Sig/Janine Route Start Time Stop Time Status Last Admin Dose Admin Sodium Chloride 1,000 ml @ 100 mls/hr Q10H IV 06/30/24 14:00 07/01/24 10:17 100 MLS/HR Acetaminophen/ Hydrocodone Bitart 1 tab Q4HP PRN PO 06/30/24 14:00 07/01/24 13:25 1 TAB Ondansetron HCl 4 mg Q4HP PRN IV 06/30/24 14:00 Acetaminophen 650 mg Q6HP PRN PO 06/30/24 14:00 Morphine Sulfate 2 mg Q4HPRN PRN IV 06/30/24 14:00 07/01/24 20:17 2 MG Ceftriaxone Sodium 50 ml @ 100 mls/hr DAILY@09 IV 07/01/24 09:00 07/02/24 09:16 100 MLS/HR Metronidazole 100 ml @ 100 mls/hr Q8HR IV 06/30/24 22:00 07/02/24 05:52 100 MLS/HR Pantoprazole Sodium 40 mg BID IV 07/02/24 10:00 07/02/24 09:17 40 MG Iron Sucrose 110 ml @ 110 mls/hr DAILY@1200 IV 07/03/24 12:00 07/07/24 12:59 Laboratory Results Laboratory Tests 07/02/24 04:53 07/02/24 09:33 Chemistry Test 07/02/24 04:53 Calcium Level 9.1 mg/dL (8.7-10.4) Microbiology Microbiology Date/Time Source Procedure Growth Status 06/30/24 15:58 Blood Blood Culture - Preliminary NO GROWTH AFTER 24 HOURS OF INCUBATION. Resulted Labs and/or images reviewed: Labs reviewed by me, Image(s) reviewed by me Assessment/Plan Assessment/Plan Abdominal pain Nausea and vomiting Possible GI bleed Heavy alcohol use Marijuana use Plan: Discussed with Dr. Otilio Mandujano Schedule for EGD with MAC tomorrow 07/03/2024 discussed risks, benefits, and alternatives of procedure and sedation patient understands and agrees Discussed extensively DC alcohol Recheck labs in a.m. Plan discussed with: Patient, Spouse, Other (RN) My Orders Orders - DESTINEY GILLETTE Procedure Category Date Status Time Clear Liq Diet DIET 07/02/24 Transmitted Dinner Obtain Consent For: ORDERS 07/02/24 Transmitted 14:14 Npo (Nothing By DIET 07/03/24 Transmitted Mouth) Diet Breakfast Obtain Consent For LOBITO 07/02/24 In Process Anesthesia 14:14 Complete Blood Count LAB 07/03/24 Verified 04:14 Prothrombin Time W/ LAB 07/03/24 Verified INR 04:14 Date of Service: Jul 02, 2024 Billing Provider: DESTINEY GILLETTE Common Visit Codes: [id number] INP/OBS CARE(HIGH) DESTINEY GILLETTE Jul 02, 2024 14:24
[2024-07-02] MEDS: metroNIDAZOLE 500MG/100ML 100 ML IV SCH (17:21)
[2024-07-02 23:46] LABS: Amphetamine Screen, Urine Neg (NEGATIVE); Benzodiazephine Screen, Urine Neg (NEGATIVE)
[2024-07-02 23:47] LABS: Barbiturate Scree,Urine Neg (NEGATIVE); Cannabinoid Screen, Urine Pos (NEGATIVE); Cocaine Screen, Urine Neg (NEGATIVE); Opiate Scree,Urine Neg (NEGATIVE); Phencyclidine Screen, Urine Neg (NEGATIVE); Urine Bacteria FEW /hpf (None Seen); Urine Blood Negative /uL (Negative); Urine Clarity Clear (Clear); Urine Color Colorless (Yellow); Urine Protein, UAD Negative (Negative); Urine Specific Gravity 1.004 (1.001-1.035); Urine Urobilinogen Normal (Negative); Urine WBC 1 /hpf (0 - 3); Urine pH 5.5 (5.0-9.0)
[2024-07-03] VITALS (8 sets, daily range): BP systolic 97–151; BP diastolic 55–74; PULSE 69–89; RESP 16–19; TEMP 97.8–98.5; O2SAT 96–100
[2024-07-03 05:56] LABS: Basophils # (auto) 0 10 ^3/uL (0-0.2); Monocytes # (auto) 0.3 10 ^3/uL (0-1.3); Neutrophils # (auto) 2.8 10 ^3/uL (1.6-8.6); Nucleated Red Blood Cells % 0.1 %
[2024-07-03 05:59] LABS: Basophils % (auto) 0.9 % (0.0-2.0); Eosinophils # (auto) 0.1 10 ^3/uL (0-0.8); Hematocrit 20.5 % (41.0-53.0); Lymphocytes # (auto) 2.1 10 ^3/uL (0.4-5.4); Mean Corpuscular Hemoglobin 32.2 pg (28.0-32.0); Mean Corpuscular Volume 94.7 fL (80.0-100.0); Neutrophils % (auto) 52.1 % (37.0-80.0); Platelet Count (auto) 229 10^3/uL (140-450); Red Blood Cells 2.16 10^6/uL (4.5-5.90); Red Cell Distribution Width 13.5 % (11.8-14.3); White Blood Cell 5.3 10^3/uL (4.4-10.8)
[2024-07-03 06:12] LABS: INR 1.03 (0.9-1.15); Prothrombin Time 10.9 sec (9.3-11.8)
--- NOTE | 2024-07-03 08:34 | DVHPN2 ---
Reviewed: Care Plan, H&P, Labs, Medications, Previous Orders, Radiology Changes from previous H/P or p: No Changes Eyes: No Pain, No Vision change, No Conjunctivae inflammation, No Eyelid inflammation, No Other, No Redness ENT: No Ear pain, No Ear discharge, No Nose pain, No Nose discharge, No Nose congestion, No Mouth pain, No Mouth swelling, No Throat pain, No Throat swelling, No Other Cardiovascular: No Chest Pain, No Palpitations, No Orthopnea, No Paroxysmal Noc. Dyspnea, No Edema, No Lt Headedness, No Other Respiratory: No Cough, No Dry, No Shortness of breath, No SOB with excertion, No Wheezing, No Hemoptysis, No Pleuritic Pain, No Sputum, No Other Gastrointestinal: Nausea, Vomiting, Abdominal Pain, Diarrhea; No Constipation; Melena, Hematochezia; No Other Genitourinary: No Dysuria, No Frequency, No Incontinence, No Hematuria, No Retention, No Other Musculoskeletal: No other, No neck pain, No shoulder pain, No arm pain, No back pain, No hand pain, No leg pain, No foot pain Skin: No Rash, No Lesions, No Jaundice, No Bruising, No Other Objective Vitals Vital Signs Date Time Temp Pulse Resp B/P (MAP) Pulse Ox O2 Delivery O2 Flow Rate FiO2 07/03/24 05:00 97.9 69 16 104/55 (71) 100 97.9 07/02/24 20:00 Room Air* 0 21 Intake/Output Intake and Output 07/03/24 07:00 Intake Total 1875 ml Output Total 1175 ml Balance 700 ml Intake Oral 225 ml IV Total 1650 ml Output Urine Total 1175 ml # Voids 4 General Appearance: Alert, Oriented X3, Cooperative, No acute distress, mild distress, moderate distress, severe distress, Other HEENT: Atraumatic, PERRLA, EOMI, Mucous membr. moist/pink Neck: Supple Lungs: Clear to auscultation, Normal air movement, Other Cardiovascular: Regular rate, Normal S1, Normal S2, No murmurs, Gallops, Rubs, Other Abdomen: Normal bowel sounds, Soft, No tenderness (Mild left upper quadrant and epigastric tenderness), No hepatospenomegaly, No masses, Other Neuro: Cranial nerves 3-12 NL Psych/Mental Status: Mental status NL Medications Current Medications Medications Dose Ordered Sig/Janine Route Start Time Stop Time Status Last Admin Dose Admin Sodium Chloride 1,000 ml @ 100 mls/hr Q10H IV 06/30/24 14:00 07/02/24 22:08 100 MLS/HR Acetaminophen/ Hydrocodone Bitart 1 tab Q4HP PRN PO 06/30/24 14:00 07/02/24 21:31 1 TAB Ondansetron HCl 4 mg Q4HP PRN IV 06/30/24 14:00 Acetaminophen 650 mg Q6HP PRN PO 06/30/24 14:00 Morphine Sulfate 2 mg Q4HPRN PRN IV 06/30/24 14:00 07/01/24 20:17 2 MG Ceftriaxone Sodium 50 ml @ 100 mls/hr DAILY@09 IV 07/01/24 09:00 07/02/24 09:16 100 MLS/HR Pantoprazole Sodium 40 mg BID IV 07/02/24 10:00 07/02/24 21:31 40 MG Iron Sucrose 110 ml @ 110 mls/hr DAILY@1200 IV 07/03/24 12:00 07/07/24 12:59 Metronidazole 100 ml @ 100 mls/hr Q8H IV 07/02/24 18:00 07/03/24 01:43 100 MLS/HR Laboratory Results Laboratory Tests 07/02/24 04:53 07/03/24 05:15 Coagulation Test 07/03/24 05:15 Prothrombin Time 10.9 sec (9.3-11.8) Prothrombin Time INR 1.03 (0.9-1.15) Activated Partial Thromboplast Time 27.0 SEC (24.5-34.5) Urinalysis Test 07/02/24 23:13 Urine Color Colorless (Yellow) Urine Clarity Clear (Clear) Urine pH 5.5 (5.0-9.0) Urine Specific [place] 1.004 (1.001-1.035) Urine Protein Negative (Negative) Urine Ketones Negative (Negative) Urine Blood Negative /uL (Negative) Urine Nitrite Negative (Negative) Urine Bilirubin Negative (Negative) Urine Urobilinogen Normal mg/dL (Negative) Urine Leukocyte Esterase Negative /uL (Negative) Urine RBC 1 /hpf (0 - 3) Urine WBC 1 /hpf (0 - 3) Urine Squamous Epithelial Cells None seen /hpf (<5) Urine Bacteria Few /hpf (None Seen) H Urine Glucose Normal mg/dL (Normal) Microbiology Microbiology Date/Time Source Procedure Growth Status 06/30/24 15:58 Blood Blood Culture - Preliminary NO GROWTH AFTER 48 HOURS OF INCUBATION. Resulted Labs and/or images reviewed: Labs reviewed by me, Image(s) reviewed by me Assessment/Plan Assessment/Plan Covering for Dr. Jackson # Rule out GI bleed: GI consult by Dr. Otilio Mandujano appreciated, patient getting EGD # acute abdominal pain # possible colitis # cannabis hyperemesis syndrome # marijuana use # N/V/D #Chronic current alcohol abuse: Counseling # Anemia hemoglobin 7.1, patient refused blood transfusion, instead wants iron infusion Plan discussed with: Patient My Orders Orders - SALINAS GILLETTE MD Procedure Category Date Status Time Iron Sucrose Complex PHA 07/03/24 In Process (Venofer) 12:00 * [facility] CONS 07/02/24 Transmitted 13:52 Date of Service: Jul 03, 2024 Billing Provider: SALINAS GILLETTE MD Common Visit Codes: [id number] INP/OBS CARE(HIGH) SALINAS GILLETTE MD Jul 03, 2024 08:34
[2024-07-03] MEDS: IRON SUCROSE COMPLEX 110 ML IV SCH (11:48)
[2024-07-03] MEDS ORDERED: LIDOCAINE VISCOUS 2% 15ML UD ONE (12:50)
[2024-07-03] MEDS ORDERED: MIDAZOLAM HCL 2MG/2ML 2ml VIAL (1mg/ml) ONE (13:35)
[2024-07-03] MEDS ORDERED: ONDANSETRON HCL 4 MG/2 ML VIAL ONE (13:35)
[2024-07-03] MEDS ORDERED: fentaNYL CITRATE 100 MCG/2 ML VL ONE (13:35)
[2024-07-03] MEDS ORDERED: LIDOCAINE 2% (LOCAL ANESTH.) PF 5ml SDV ONE (13:35)
[2024-07-03] MEDS ORDERED: PROPOFOL 10 MG/ML 20 ML IV ONE ×2 (13:35→14:00)
[2024-07-03] MEDS ORDERED: SODIUM CHLORIDE LOCK 10 ML ONE (13:35)
[2024-07-03] MEDS ORDERED: DexAMETHasone SOD PHOS 10MG/1ML VIAL INJ ONE (14:00)
--- NOTE | 2024-07-03 14:19 | DVHOP2 ---
Operative Report DATE OF OPERATION: 07/03/24 PROCEDURE: Upper Endoscopy with biopsy. PREOPERATIVE INDICATION: The patient is a 39 -year-old male undergoing endoscopy for anemia and melena and chronic alcohol use POSTOPERATIVE DIAGNOSES: 1. 3 cm sliding-type hiatal hernia with grade B erosive esophagitis and two ulcers noted at the GE junction from which biopsies were obtained 2. Mild gastritis and gastropathy more prominent in the proximal stomach 3. Otherwise normal examination up to the 2nd and 3rd part of the duodenum with no active bleeding no fresh or old blood and no esophageal varices noted PROCEDURE PERFORMED BY: Elizabeth Mandujano GI NURSE: Cara SCOPE: Olympus videoendoscope. ASA CLASS: 3. PREOPERATIVE MEDICATIONS: Mac sedation, Dr. Olvera PROCEDURE IN DETAIL: After obtaining an informed consent, the patient was placed on left lateral decubitus position. The patient was then sedated with the above medications. A bite block was placed between he teeth. The endoscope was then passed through the oropharynx, into the esophagus, and through the stomach and pylorus up to the second and third part of the duodenum. The endoscope was then withdrawn. The 2nd and 3rd part of the duodenum and the duodenal bulb were normal. Duodenal biopsies were obtained. There was no fresh or old blood in the upper GI The pre-pyloric area antrum and body showed minimal gastritis. On retroflexion and straight on view patient had mild gastritis and gastropathy of the proximal stomach Gastric biopsies were obtained. The endoscope was then withdrawn into the distal esophagus. Patient had a 3 cm sliding-type hiatal hernia. Patient had grade B erosive esophagitis with two distal esophageal ulcers. GE junction biopsies were obtained. The remaining distal and proximal esophagus and oropharynx were unremarkable and there were no varices The patient tolerated the procedure well without difficulty. COMPLICATIONS : None SPECIMENS: Duodenal biopsies Gastric biopsies GE junction biopsies DISPOSITION: Transfer back to the floor Stable PLAN: 1. Await for biopsy result 2. Will place pt on Protonix 40 mg bid PO 3. Carafate 1 g p.o. 4 times a day 4. Soft mechanical diet advance as tolerated 5.Iron supplementation and patient was discouraged from giving blood donation as he has been doing that recent; discontinue alcohol ELIZABETH MANDUJANO MD Jul 03, 2024 14:19
[2024-07-03] MEDS: SUCRALFATE 1 GM/10 ML ORAL SUSP PO SCH (17:37)
[2024-07-03] MEDS: PANTOPRAZOLE 40 MG TAB PO SCH (17:38)
[2024-07-03] MEDS: FERROUS SULFATE 325mg EC TAB PO SCH (18:15)
[2024-07-04 01:00] VITALS: BP 100/58; PULSE 83; RESP 17; TEMP 98.1; O2SAT 100
[2024-07-04 05:00] VITALS: BP 93/51; PULSE 74; RESP 17; TEMP 98.1; O2SAT 99
[2024-07-04 06:55] LABS: Basophils # (auto) 0.1 10 ^3/uL (0-0.2); Basophils % (auto) 0.7 % (0.0-2.0); Eosinophils # (auto) 0.1 10 ^3/uL (0-0.8); Eosinophils % (auto) 0.9 % (0.0-7.0); Hematocrit 22.3 % (41.0-53.0); Hemoglobin 7.3 g/dL (13.5-17.5); Lymphocytes # (auto) 2.4 10 ^3/uL (0.4-5.4); Lymphocytes % (auto) 32.8 % (10.0-50.0); Mean Corpuscular Hemoglobin 31.8 pg (28.0-32.0); Mean Corpuscular Hgb Conc. 32.9 g/dL (32.0-36.0); Mean Corpuscular Volume 96.5 fL (80.0-100.0); Monocytes # (auto) 0.4 10 ^3/uL (0-1.3); Monocytes % (auto) 5.7 % (0.0-12.0); Neutrophils # (auto) 4.5 10 ^3/uL (1.6-8.6); Neutrophils % (auto) 59.9 % (37.0-80.0); Nucleated Red Blood Cells % 0.1 %; Platelet Count (auto) 276 10^3/uL (140-450); Red Blood Cells 2.31 10^6/uL (4.5-5.90); Red Cell Distribution Width 14.1 % (11.8-14.3); White Blood Cell 7.5 10^3/uL (4.4-10.8)
[2024-07-04 08:00] VITALS: PULSE 74; RESP 18
--- NOTE | 2024-07-04 08:28 | DVHPN2 ---
Reviewed: Care Plan, H&P, Labs, Medications, Previous Orders, Radiology Changes from previous H/P or p: No Changes Eyes: No Pain, No Vision change, No Conjunctivae inflammation, No Eyelid inflammation, No Other, No Redness ENT: No Ear pain, No Ear discharge, No Nose pain, No Nose discharge, No Nose congestion, No Mouth pain, No Mouth swelling, No Throat pain, No Throat swelling, No Other Cardiovascular: No Chest Pain, No Palpitations, No Orthopnea, No Paroxysmal Noc. Dyspnea, No Edema, No Lt Headedness, No Other Respiratory: No Cough, No Dry, No Shortness of breath, No SOB with excertion, No Wheezing, No Hemoptysis, No Pleuritic Pain, No Sputum, No Other Gastrointestinal: Nausea, Vomiting, Abdominal Pain, Diarrhea; No Constipation; Melena, Hematochezia; No Other Genitourinary: No Dysuria, No Frequency, No Incontinence, No Hematuria, No Retention, No Other Musculoskeletal: No other, No neck pain, No shoulder pain, No arm pain, No back pain, No hand pain, No leg pain, No foot pain Skin: No Rash, No Lesions, No Jaundice, No Bruising, No Other Objective Vitals Vital Signs Date Time Temp Pulse Resp B/P (MAP) Pulse Ox O2 Delivery O2 Flow Rate FiO2 07/04/24 05:00 98.1 74 17 93/51 (65) 99 98.1 07/03/24 20:00 Room Air* 0 21 Intake/Output Intake and Output 07/04/24 07:00 Intake Total 3264 ml Balance 3264 ml Intake Oral 1834 ml IV Total 1430 ml # Voids 8 # Bowel Movements 1 General Appearance: Alert, Oriented X3, Cooperative, No acute distress, mild distress, moderate distress, severe distress, Other HEENT: Atraumatic, PERRLA, EOMI, Mucous membr. moist/pink Neck: Supple Lungs: Clear to auscultation, Normal air movement, Other Cardiovascular: Regular rate, Normal S1, Normal S2, No murmurs, Gallops, Rubs, Other Abdomen: Normal bowel sounds, Soft, No tenderness (Mild left upper quadrant and epigastric tenderness), No hepatospenomegaly, No masses, Other Neuro: Cranial nerves 3-12 NL Psych/Mental Status: Mental status NL Medications Current Medications Medications Dose Ordered Sig/Janine Route Start Time Stop Time Status Last Admin Dose Admin Sodium Chloride 1,000 ml @ 100 mls/hr Q10H IV 06/30/24 14:00 07/03/24 12:24 100 MLS/HR Acetaminophen/ Hydrocodone Bitart 1 tab Q4HP PRN PO 06/30/24 14:00 07/04/24 05:33 1 TAB Ondansetron HCl 4 mg Q4HP PRN IV 06/30/24 14:00 Acetaminophen 650 mg Q6HP PRN PO 06/30/24 14:00 Morphine Sulfate 2 mg Q4HPRN PRN IV 06/30/24 14:00 07/01/24 20:17 2 MG Ceftriaxone Sodium 50 ml @ 100 mls/hr DAILY@09 IV 07/01/24 09:00 07/03/24 10:04 100 MLS/HR Iron Sucrose 110 ml @ 110 mls/hr DAILY@1200 IV 07/03/24 12:00 07/07/24 12:59 07/03/24 11:48 110 MLS/HR Metronidazole 100 ml @ 100 mls/hr Q8H IV 07/02/24 18:00 07/04/24 02:12 100 MLS/HR Pantoprazole Sodium 40 mg BID@0600,1700 PO 07/03/24 17:00 07/04/24 05:33 40 MG Sucralfate 1 gm QID@0600,1130,1700,2200 PO 07/03/24 17:00 07/04/24 05:33 1 GM Ferrous Sulfate 325 mg BIDWM PO 07/03/24 18:00 07/03/24 18:15 325 MG Laboratory Results Laboratory Tests 07/02/24 04:53 07/04/24 05:51 Urinalysis Test 07/02/24 23:13 Urine Color Colorless (Yellow) Urine Clarity Clear (Clear) Urine pH 5.5 (5.0-9.0) Urine Specific [place] 1.004 (1.001-1.035) Urine Protein Negative (Negative) Urine Ketones Negative (Negative) Urine Blood Negative /uL (Negative) Urine Nitrite Negative (Negative) Urine Bilirubin Negative (Negative) Urine Urobilinogen Normal mg/dL (Negative) Urine Leukocyte Esterase Negative /uL (Negative) Urine RBC 1 /hpf (0 - 3) Urine WBC 1 /hpf (0 - 3) Urine Squamous Epithelial Cells None seen /hpf (<5) Urine Bacteria Few /hpf (None Seen) H Urine Glucose Normal mg/dL (Normal) Microbiology Microbiology Date/Time Source Procedure Growth Status 06/30/24 15:58 Blood Blood Culture - Preliminary NO GROWTH AFTER 72 HOURS OF INCUBATION. Resulted Labs and/or images reviewed: Labs reviewed by me, Image(s) reviewed by me Assessment/Plan Assessment/Plan Covering for Dr. Jackson # possible GI bleed #1. 3 cm sliding-type hiatal hernia with grade B erosive esophagitis and two ulcers noted at the GE junction from which biopsies were obtained 2. Mild gastritis and gastropathy more prominent in the proximal stomach # acute abdominal pain # possible colitis # cannabis hyperemesis syndrome # marijuana use # N/V/D #Chronic current alcohol abuse: Counseling # acute blood loss Anemia hemoglobin 7.1, patient refused blood transfusion, instead wants iron infusion, hemoglobin stable at 7.3 at the time of discharge Plan discussed with: Patient My Orders Orders - SALINAS GILLETTE MD Procedure Category Date Status Time Complete Blood Count LAB 07/05/24 Verified 05:00 Complete Blood Count LAB 07/06/24 Verified 05:00 Date of Service: Jul 04, 2024 Billing Provider: SALINAS GILLETTE MD Common Visit Codes: [id number] INP/OBS CARE(HIGH) SALINAS GILLETTE MD Jul 04, 2024 08:28
[2024-07-04] MEDS ORDERED: LEVO500T91 PO (08:34)
[2024-07-04] MEDS ORDERED: FERR-7 PO (08:34)
[2024-07-04] MEDS ORDERED: SUCR1TAB31 PO (08:34)
[2024-07-04] MEDS ORDERED: PANT40T PO (08:34)
[2024-07-04] MEDS ORDERED: METR-344 PO (08:34)
--- NOTE | 2024-07-04 08:41 | DVHDS2 ---
Discharge Summary Date of Admission Jun 30, 2024 at 13:52 Date of Discharge: Jul 04, 2024 Admitting Diagnosis Abdominal pain nausea and vomiting Wounds: EGD Labs/Diagnostic Data: Laboratory Results Test 07/04/24 05:51 07/03/24 05:15 07/02/24 23:13 07/02/24 04:53 White Blood Count 7.5 10^3/uL (4.4-10.8) Red Blood Count 2.31 10^6/uL (4.5-5.90) Hemoglobin 7.3 g/dL (13.5-17.5) Hematocrit 22.3 % (41.0-53.0) Mean Corpuscular Volume 96.5 fL (80.0-100.0) Mean Corpuscular Hemoglobin 31.8 pg (28.0-32.0) Mean Corpuscular Hemoglobin Concent 32.9 g/dL (32.0-36.0) Red Cell Distribution Width 14.1 % (11.8-14.3) Platelet Count 276 10^3/uL (140-450) Mean Platelet Volume 8.8 fL (6.9-10.8) Neutrophils (%) (Auto) 59.9 % (37.0-80.0) Lymphocytes (%) (Auto) 32.8 % (10.0-50.0) Monocytes (%) (Auto) 5.7 % (0.0-12.0) Eosinophils (%) (Auto) 0.9 % (0.0-7.0) Basophils (%) (Auto) 0.7 % (0.0-2.0) Neutrophils # (Auto) 4.5 10 ^3/uL (1.6-8.6) Lymphocytes # (Auto) 2.4 10 ^3/uL (0.4-5.4) Monocytes # (Auto) 0.4 10 ^3/uL (0-1.3) Eosinophils # (Auto) 0.1 10 ^3/uL (0-0.8) Basophils # (Auto) 0.1 10 ^3/uL (0-0.2) Nucleated Red Blood Cells 0.1 % Prothrombin Time 10.9 sec (9.3-11.8) Prothrombin Time INR 1.03 (0.9-1.15) Activated Partial Thromboplast Time 27.0 SEC (24.5-34.5) Urine Color Colorless (Yellow) Urine Clarity Clear (Clear) Urine pH 5.5 (5.0-9.0) Urine Specific [place] 1.004 (1.001-1.035) Urine Protein Negative (Negative) Urine Ketones Negative (Negative) Urine Blood Negative /uL (Negative) Urine Nitrite Negative (Negative) Urine Bilirubin Negative (Negative) Urine Urobilinogen Normal mg/dL (Negative) Urine Leukocyte Esterase Negative /uL (Negative) Urine RBC 1 /hpf (0 - 3) Urine WBC 1 /hpf (0 - 3) Urine Squamous Epithelial Cells None seen /hpf (<5) Urine Bacteria Few /hpf (None Seen) Urine Glucose Normal mg/dL (Normal) Urine Opiates Screen Neg (NEGATIVE) Urine Fentanyl Screen Neg (NEGATIVE) Urine Barbiturates Screen Neg (NEGATIVE) Urine Phencyclidine Screen Neg (NEGATIVE) Urine Amphetamines Screen Neg (NEGATIVE) Urine Benzodiazepines Screen Neg (NEGATIVE) Urine Cocaine Screen Neg (NEGATIVE) Urine Cannabinoids Screen Pos (NEGATIVE) Sodium Level 139 mmol/L (136-145) Potassium Level 3.5 mmol/L (3.5-5.1) Chloride Level 104 mmol/L (98-107) Carbon Dioxide Level 29 mmol/L (20-31) Anion Gap 6 (5-15) Blood Urea Nitrogen 7 mg/dL (9-23) Creatinine 0.90 mg/dL (0.700-1.30) Glomerular Filtration Rate Calc 110 mL/min (>90) BUN/Creatinine Ratio 7.8 (10.0-20.0) Serum Glucose 82 mg/dL (74-106) Calcium Level 9.1 mg/dL (8.7-10.4) Test 06/30/24 08:57 Total Bilirubin 0.5 mg/dL (0.2-1.0) Direct Bilirubin 0.2 mg/dL (<0.3) Aspartate Amino Transferase (AST) 18 U/L (13-40) Alanine Aminotransferase (ALT) 20 U/L (7-40) Alkaline Phosphatase 64 U/L (46-116) Total Protein 5.9 g/dL (5.7-8.2) Albumin 4.1 g/dL (3.2-4.8) Lipase 60 U/L (12-53) Plasma/Serum Blood Alcohol 4.6 mg/dL (<10) Other Laboratory Tests 07/04/24 05:51 07/02/24 04:53 Brief Hx & Hospital Course: Patient was originally seen by Dr. Jackson 39-year-old male with a history of marijuana abuse came in for abdominal pain nausea and vomiting treated with Rocephin and Flagyl for possible colitis hemoglobin was low 7.1 patient refused blood transfusion given iron infusion EGD by Dr. Otilio Mandujano showed 1.3 cm sliding-type hiatal hernia with grade B erosive esophagitis and two ulcers at the GE junction biopsies were taken patient also had mild gastritis and gastropathy. Patient feels better now being discharged home on Levaquin Flagyl pantoprazole sucralfate and iron tablets he will follow up with the GI Dr. Otilio Mandujano in two weeks for the biopsy result. Consults/Reason for consult GI Dr. Otilio Mandujano Operations or Procedures EGD Condition at Discharge: Fair Final Diagnosis/Problems List # possible GI bleed #1. 3 cm sliding-type hiatal hernia with grade B erosive esophagitis and two ulcers noted at the GE junction from which biopsies were obtained 2. Mild gastritis and gastropathy more prominent in the proximal stomach # acute abdominal pain # possible colitis # cannabis hyperemesis syndrome # marijuana use # N/V/D #Chronic current alcohol abuse: Counseling # acute blood loss Anemia hemoglobin 7.1, patient refused blood transfusion, instead wants iron infusion, hemoglobin stable at 7.3 at the time of discharge Discharge Disposition: Home Discharge Instruct/Medications Diet: Regular Activity: Light activity Follow Up/Referral: Follow up with your primary Dr Follow up with the GI Dr. Otilio Mandujano in two weeks Medications: Pantoprazole Sucralfate Levaquin Flagyl Iron tablets Transmitted to the [facility] 36 (Time taken for discharge summary 36 minutes) Discharge Statement: "Patient was advised to return to the ER or call 911 if any headaches, dizziness, shortness of breath, chest pain, abdominal pain, bleeding, fevers, or worsening of medical condition. Patient was counseled about treatment plan, medications, possible side effects, patientverbalized understanding. All questions were answered to the best of my ability. This discharge took greater then 30 minutes in planning, reviewing documentation, counseling the patient, and discussing with other team members." ASSESSMENT ASSESSMENT Hospital Course Improved Assessment # possible GI bleed #1. 3 cm sliding-type hiatal hernia with grade B erosive esophagitis and two ulcers noted at the GE junction from which biopsies were obtained 2. Mild gastritis and gastropathy more prominent in the proximal stomach # acute abdominal pain # possible colitis # cannabis hyperemesis syndrome # marijuana use # N/V/D #Chronic current alcohol abuse: Counseling # acute blood loss Anemia hemoglobin 7.1, patient refused blood transfusion, instead wants iron infusion, hemoglobin stable at 7.3 at the time of discharge Date of Service: Jul 04, 2024 Billing Provider: SALINAS GILLETTE MD Common Visit Codes: [id number] INP/OBS CARE(HIGH) SALINAS GILLETTE MD Jul 04, 2024 08:41
[2024-07-04 09:09] VITALS: BP 117/59; PULSE 62; RESP 16; TEMP 98; O2SAT 100
[2024-07-04 12:00] VITALS: BP_SYST 129; BP_SYST 131; BP_DIAS 73; BP_DIAS 76; PULSE 77; PULSE 80; RESP 16; RESP 18; TEMP 98.3; TEMP 98.7; O2SAT 93; O2SAT 98
--- NOTE | 2024-07-04 18:20 | DVHPN2 ---
Progress Note - Dictate Date Seen: Jul 04, 2024 Medical Necessity Reason Pt with a Central, PICC or Fol: No Subjective No new complaints Repeat Hb 7.3 vital signs Vital Sign Date Time Temp Pulse Resp B/P (MAP) Pulse Ox O2 Delivery O2 Flow Rate FiO2 07/04/24 12:00 98.7 80 16 131/76 (94) 98 98.7 07/04/24 08:00 Room Air* 0 21 Total Intake and Output 07/03/24 07/03/24 07/04/24 15:00 23:00 07:00 Intake Total 410 ml 794 ml 2060 ml Balance 410 ml 794 ml 2060 ml medications Current Medications Medications Dose Ordered Sig/Janine Route Start Time Stop Time Status Last Admin Dose Admin Sodium Chloride 1,000 ml @ 100 mls/hr Q10H IV 06/30/24 14:00 07/03/24 12:24 100 MLS/HR Acetaminophen/ Hydrocodone Bitart 1 tab Q4HP PRN PO 06/30/24 14:00 07/04/24 12:37 1 TAB Ondansetron HCl 4 mg Q4HP PRN IV 06/30/24 14:00 Acetaminophen 650 mg Q6HP PRN PO 06/30/24 14:00 Morphine Sulfate 2 mg Q4HPRN PRN IV 06/30/24 14:00 07/01/24 20:17 2 MG Ceftriaxone Sodium 50 ml @ 100 mls/hr DAILY@09 IV 07/01/24 09:00 07/04/24 09:05 100 MLS/HR Iron Sucrose 110 ml @ 110 mls/hr DAILY@1200 IV 07/03/24 12:00 07/07/24 12:59 07/04/24 09:04 110 MLS/HR Metronidazole 100 ml @ 100 mls/hr Q8H IV 07/02/24 18:00 07/04/24 11:24 100 MLS/HR Pantoprazole Sodium 40 mg BID@0600,1700 PO 07/03/24 17:00 07/04/24 05:33 40 MG Sucralfate 1 gm QID@0600,1130,1700,2200 PO 07/03/24 17:00 07/04/24 09:04 1 GM Ferrous Sulfate 325 mg BIDWM PO 07/03/24 18:00 07/04/24 09:04 325 MG objective General Appearance: Alert, Oriented X3, Cooperative, No acute distress HEENT: Atraumatic, PERRLA, EOMI, Mucous membr. moist/pink Neck: Supple Lungs: Clear to auscultation, Normal air movement, Other Cardiovascular: Regular rate, Normal S1, Normal S2, No murmurs, Gallops, Rubs, Other Abdomen: Normal bowel sounds, Soft, Neuro: Cranial nerves 3-12 NL Psych/Mental Status: Mental status NL laboratory and microbiology Laboratory Tests 07/04/24 05:51 07/02/24 04:53 Test 07/02/24 04:53 Range/Units Serum Glucose 82 74-106 mg/dL Problems(with codes): (1) Esophageal ulceration (2) Hiatal hernia with GERD and esophagitis (3) Severe anemia (4) Gastroenteritis Prognosis PLAN Patient is getting IV iron Patient received IV antibiotics Patient is tolerating diet Hemoglobin is improved Discharge planning is in progress Dietary Evaluation Review Comments: 1) Advance pt diet when medically feasible 2) Continue current plan of care Expected Outcomes/Goals: 1) Pt diet to advance 2) F/U in 2-3 days Plan discussed with: Patient ELIZABETH KATZ MD Jul 04, 2024 18:20
== END 2024-07-04 17:25 | disposition home or self-care (01) | DRG 248 ==
LOC: EDBD 08:32 → EEVIPCON 08:32 → ER 08:32 → OVERFLOW 13:52 → CENTRAL 14:04
PROVIDERS: ADMIT Internal Medicine Gastroenterology; ATTEND Family Medicine
PROC: 0DB68ZX Excision of Stomach, Via Natural or Artificial Opening Endoscopic, Diagnostic (ICD-10-PCS; 2024-07-03)
PROC: 0DB48ZX Excision of Esophagogastric Junction, Via Natural or Artificial Opening Endoscopic, Diagnostic (ICD-10-PCS; 2024-07-03)
PROC: 0DB98ZX Excision of Duodenum, Via Natural or Artificial Opening Endoscopic, Diagnostic (ICD-10-PCS; principal; 2024-07-03 14:00)
DX: A04.9 Bacterial intestinal infection, unspecified (principal); K22.11 Ulcer of esophagus with bleeding; K20.91 Esophagitis, unspecified with bleeding; K29.71 Gastritis, unspecified, with bleeding; D62 Acute posthemorrhagic anemia; Y90.9 Presence of alcohol in blood, level not specified; F10.10 Alcohol abuse, uncomplicated; F12.90 Cannabis use, unspecified, uncomplicated; K44.9 Diaphragmatic hernia without obstruction or gangrene; K31.9 Disease of stomach and duodenum, unspecified
CPT/HCPCS: 36415; 74176; 80048; 80076; 80307; 80320; 81001; 83690; 85014; 85018; 85025; 85610; 85730; 86850; 86900; 86901; 86920; 87040; G0378; J1100; J1756; J2003; J2250; J2405; J2470; J2704; J3490

== ENCOUNTER 2024-07-30 12:15 | Emergency (ER) | payer MEDICAID ==
[~2024-07-30] VITALS: Ht 91.4 cm; Wt 65.9 kg
[~2024-07-30 12:15] MED LIST: FERR-7 PO; LEVO500T91 PO; METR-344 PO; PANT40T PO; SUCR1TAB31 PO
[2024-07-30 12:17] VITALS: BP 122/86; PULSE 86; RESP 16; O2SAT 98
== END 2024-07-30 14:46 | disposition left against medical advice (07) ==
LOC: ER 12:15 → EDUNIT# 12:15 → EDBD 12:15 → ER 14:46
DX: M25.562 Pain in left knee (principal); M25.561 Pain in right knee; Z53.21 Procedure and treatment not carried out due to patient leaving prior to being seen by health care provider

== ENCOUNTER 2025-06-06 06:23 | Inpatient (IN) | payer MEDICAID, OTHER ==
[~2025-06-06] VITALS: Ht 172.7 cm; Wt 83.4 kg
--- NOTE | 2025-06-06 06:51 | ED.PDOC ---
GI ASSESSMENT HPI Comments 40 y.o male presents to the ED for a chief complaint of diffused abdominal pain associated with nausea, vomiting, and altered bowel movements x 4 days. Patient reports having diarrhea when symptoms first presented but now has been constipated for 3 days. Patient was seen a couple month ago at the hospital for same complaint, is unsure of his diagnose but states s/p receiving fluids, felt better. Today, he mentions abdominal pain now radiates to his back, describes as sharp and constant with no alleviating factors. He admits to smoking marijuana daily with occasional ETOH use. He denies any hematemesis, rectal bleeding, fever, chest pain, or SOB. Chief Complaint: Abdominal Pain Time Seen by MD: 06:42 Primary Care Provider: KRISTI Reviewed Notes: Nurses Notes, Medications, Allergies Allergies: Coded Allergies: NO KNOWN ALLERGIES (Unverified , 10/29/14) Home Meds Active Scripts Sucralfate (CARAFATE) 1 Gm Tab, 1 GM PO QID, #120 TAB Prov:SALINAS GILLETTE MD 07/04/24 Pantoprazole Sodium Sesquihydr (Pantoprazole Sodium) 40 Mg Tab, 40 MG PO BID, #60 TAB Prov:SALINAS GILLETTE MD 07/04/24 Ferrous Sulfate (Iron) 325 Mg Tab, 325 MG PO BID, #180 TAB Prov:SALINAS GILLETTE MD 07/04/24 Metronidazole (Flagyl) 500 Mg Tab, 1 TAB PO TID, #30 TAB Prov:SALINAS GILLETTE MD 07/04/24 Levofloxacin Hemihydrate (LEVAQUIN 500 MG) 500 Mg Tab, 1 TAB PO DAILY, #7 TAB Prov:SALINAS GILLETTE MD 07/04/24 Information Source: Patient Mode of Arrival: Ambulatory Timing: Days (4) Duration: Since onset Quality: Sharp Vomitus: Hard Stool: Empty Severity: Moderate Recent: None Recent Hx of: None Pain Location: Diffuse Modifying Factors: Nothing Associated sign and symptoms: Nausea, Vomiting, Diarrhea, Constipation, Abdominal Pain Past Medical History PAST MEDICAL HISTORY: Denies Surgical History: Denies all surgeries Family History Family History: Family hx of Cancer, Family hx of heart concepcion Social History Smoker: Non-Smoker Alcohol: Rarely Drugs: Marijuana Lives In: Home Constitutional: denies: chills, diaphoresis, fatigue, fever, malaise, sweats, weakness, others EENTM: denies: blurred vision, double vision, ear bleeding, ear discharge, ear drainage, ear pain, ear ringing, eye pain, eye redness, hearing loss, mouth pain, mouth swelling, nasal discharge, nose bleeding, nose congestion, nose pain , photophobia, tearing, throat pain, throat swelling, voice changes, others Respiratory: denies: cough, hemoptysis, orthopnea, SOB at rest, shortness of breath, SOB with excertion, stridor, wheezing, others Cardiovascular: denies: chest pain, dizzy spells, diaphoresis, Dyspnea on exertion, edema, irregular heart beat, left arm pain, lightheadedness, palpitations, PND, syncope, others Gastrointestinal: reports: abdominal pain, constipated, diarrhea, nausea, vomiting; denies: abdomen distended, blood streaked bowels, dysphagia, difficulty swallowing, hematemesis, melena, poor appetite, poor fluid intake, rectal bleeding, rectal pain, others Genitourinary: denies: burning, dysuria, flank pain, frequency, hematuria, incontinence, penile discharge, penile sore, pain, testicle pain, testicle swelling, urgency, others Neurological: denies: dizziness, fainting, headache, left sided numbness, left sided weakness, numbness, paresthesia, pre-existing deficit, right sided numbness, right sided weakness, seizure, speech problems, tingling, tremors, weakness, others Musculoskeletal: denies: back pain, gout, joint pain, joint swelling, muscle pain, muscle stiffness, neck pain, others Integumetry: denies: bruises, change in color, change in hair/nails, dryness, laceration, lesions, lumps, rash, wounds, others Allergic/Immunocompromised: denies: Difficulty Healing, Frequent Infections, Hives, Itching, others Hematologic/Lymphatic: denies: anemia, blood clots, easy bleeding, easy br uising, swollen glands, others Endocrine: denies: excessive hunger, excessive sweating, excessive thirst, excessive urination, flushing, intolerance to cold, intolerance to heat, unexplained weight gain, unexplained weight loss, others Psychiatric: denies: anxiety, bipolar disorder, depression, hopeless, panic disorder, schizophrenia, sleepless, suicidal, others All Other Systems: Reviewed and Negative Physical Exam General Appearance: Moderate Distress HEENT: Normal ENT Inspection, Pharynx Normal, TMs Normal Neck: Full Range of Motion, Non-Tender, Normal, Normal Inspection Respiratory: Chest Non-Tender, Lungs Clear, No Accessory Muscle Use, No Respiratory Distress, Normal Breath Sounds Cardiovascular: No Edema, No JVD, No Murmur, No Gallop, Normal Peripheral Pulses, Regular Rate/Rhythm Breast Exam: Deferred Gastrointestinal: Epigastric, No Organomegaly, No Pulsatile Mass, Normal Bowel Sounds, Soft, Tenderness Genitalia: Deferred Pelvic: Deferred Rectal: Deferred Extremities: No calf tenderness, Normal capillary refill, Normal inspection, Normal range of motion, Non-tender, No pedal edema Musculoskeletal : Apperance: Normal Neurologic: Alert, roaster operator II-XII nml as Tested, No Motor Deficits, Normal Affect, Normal Mood, No Sensory Deficits Cerebellar Function: Normal Reflexes: Normal Skin: Dry, Normal Color, Warm Lymphatic: No Adenopathy Was a procedure done? Was a procedure done?: No GI differential Dx Differential Diagnosis: Constipation, Esophagitis, Gastritis/PUD, Gastroenteritis, Inflammatory BD, Pancreatitis, Dehydration, Drug toxicity, Electrolyte Imbalance, Food Poisoning, Viral, Hypovolemia, Impaction, Malnutrition X-Ray, Labs, Meds, VS Vital Signs Date Time Temp Pulse Resp B/P (MAP) Pulse Ox O2 Delivery O2 Flow Rate FiO2 06/06/25 07:36 106 17 130/96 06/06/25 07:25 98.0 106 17 130/96 (107) 98 98.0 06/06/25 06:32 97.8 115 20 124/102 95 97.8 Lab Test 06/06/25 06:55 Range/Units White Blood Count 6.7 4.4-10.8 10^3/uL Red Blood Count 6.03 H 4.5-5.90 10^6/uL Hemoglobin 17.7 H 13.5-17.5 g/dL Hematocrit 52.9 41.0-53.0 % Mean Corpuscular Volume 87.7 80.0-100.0 fL Mean Corpuscular Hemoglobin 29.4 28.0-32.0 pg Mean Corpuscular Hemoglobin Concent 33.5 32.0-36.0 g/dL Red Cell Distribution Width 15.1 H 11.8-14.3 % Platelet Count 302 140-450 10^3/uL Mean Platelet Volume 8.8 6.9-10.8 fL Neutrophils (%) (Auto) 60.8 37.0-80.0 % Lymphocytes (%) (Auto) 29.9 10.0-50.0 % Monocytes (%) (Auto) 8.5 0.0-12.0 % Eosinophils (%) (Auto) 0.2 0.0-7.0 % Basophils (%) (Auto) 0.6 0.0-2.0 % Neutrophils # (Auto) 4.0 1.6-8.6 10 ^3/uL Lymphocytes # (Auto) 2.0 0.4-5.4 10 ^3/uL Monocytes # (Auto) 0.6 0-1.3 10 ^3/uL Eosinophils # (Auto) 0 0-0.8 10 ^3/uL Basophils # (Auto) 0 0-0.2 10 ^3/uL Nucleated Red Blood Cells 0.0 % Sodium Level 130 L 136-145 mmol/L Potassium Level 3.0 L 3.5-5.1 mmol/L Chloride Level 91 L 98-107 mmol/L Carbon Dioxide Level 20 20-31 mmol/L Anion Gap 19 H 5-15 Blood Urea Nitrogen 15 9-23 mg/dL Creatinine 1.54 H 0.700-1.30 mg/dL Glomerular Filtration Rate Calc 57 >90 mL/min BUN/Creatinine Ratio 9.7 L 10.0-20.0 Serum Glucose 187 H 74-106 mg/dL Calcium Level 10.1 8.7-10.4 mg/dL Lipase Pending Current Medications Medications (Trade) Dose Ordered Sig/Janine Route Start Time Stop Time Status Last Admin Sodium Chloride 1,000 ml @ 1,000 mls/hr Q1H ONCE IVB 06/06/25 06:45 06/06/25 08:00 DC 06/06/25 07:40 Morphine Sulfate 2 mg ONCE ONCE IV 06/06/25 06:45 06/06/25 06:48 DC 06/06/25 07:36 Prochlorperazine Edisylate (Compazine Inj) 10 mg ONCE ONCE IV 06/06/25 06:45 06/06/25 06:48 DC 06/06/25 07:33 Pantoprazole Sodium (Protonix) 40 mg ONCE ONCE IV 06/06/25 06:45 06/06/25 06:48 DC 06/06/25 07:33 CAT scan of the abdomen and pelvis shows: IMPRESSION: 1. Very small fat containing umbilical hernia. 2. Small nodule adjacent to the distal esophagus, possible paraesophageal lymph node, measuring less than 1 cm in short axis dimension, likely reactive lymph node. Correlate with clinical findings. Mild circumferential thickening of the wall of the distal esophagus, may be sequelae of prior inflammation. Other etiologies, including neoplasm/ malignancy would be less likely but not completely excluded in the appropriate clinical setting. Correlate with clinical findings. IV Hep-Lock was established. The patient was given Compazine 10 mg IV push The patient was given Protonix 40 mg IV push The patient was given morphine 2 mg IV push The patient was given a 1 L bolus of normal saline. The patient continues to have a significant amount of vomiting. The patient is being admitted to the hospitalist. The patient's CBC is within normal limits. The chemistry panel shows a BUN of 15 and a creatinine of 1.54 The patient also has a potassium of only 3.0 The patient is being given potassium IV piggyback Medical decision-making was made by the fact that the patient can not keep anything down orally at this time. We also feel that this patient should have further follow up of these changes in the esophagus. Images Reviewed?: Images reviewed and evaluated by me Time of 1ST Reevaluation: 06:46 Reevaluation 1ST: Unchanged Patient Education/Counseling: Diagnosis, Treatment, Prognosis Family Education/Counseling: No Family Present SEPSIS Sepsis Screen Date sepsis recognized/suspect: Jun 06, 2025 Time Sepsis recognized/suspect: 06 Recent Procedure: No On Antibiotic Therapy: No Respiratory Rate >20: No Heart Rate >90: Yes Temp<36 C (96.8 F) or >38.3 C: No SBP <90 or MAP <65 mmHG: No New Acute Mental Status Change: No Is the patient on CPAP, BIPAP,: No Physician Orders Lipase (06/06/25 06:45) Heplock Iv (06/06/25 06:45) Basic Metabolic Panel (06/06/25 06:45) Ct Ab Pel Wo Con-No Oral Or Iv (06/06/25 06:47) Vital Signs Date Time Temp Pulse Resp B/P (MAP) Pulse Ox O2 Delivery O2 Flow Rate FiO2 06/06/25 07:36 106 17 130/96 06/06/25 07:25 98.0 106 17 130/96 (107) 98 98.0 06/06/25 06:32 97.8 115 20 124/102 95 97.8 Laboratory Tests Test 06/06/25 06:55 White Blood Count 6.7 10^3/uL (4.4-10.8) Medications Medications Dose Ordered Sig/Janine Route Start Time Stop Time Status Last Admin Dose Admin Morphine Sulfate 2 mg ONCE ONCE IV 06/06/25 06:45 06/06/25 06:48 DC 06/06/25 07:36 Pantoprazole Sodium 40 mg ONCE ONCE IV 06/06/25 06:45 06/06/25 06:48 DC 06/06/25 07:33 Prochlorperazine Edisylate 10 mg ONCE ONCE IV 06/06/25 06:45 06/06/25 06:48 DC 06/06/25 07:33 Sodium Chloride 1,000 ml @ 1,000 mls/hr Q1H ONCE IVB 06/06/25 06:45 06/06/25 08:00 DC 06/06/25 07:40 Departure 1 Departure Time of Disposition: 07:47 Impression: Primary Impression: Intractable abdominal pain Additional Impressions: Intractable vomiting Hypokalemia Disposition: ADMITTED INPATIENT Admit to: Med Surg Condition: Fair Critical Care Note Critical Care Time?: No Stability Stability form required: Yes Unstable for transfer: ED Physician Assesment (Clinical assesment) I personally scribed for ABIGAIL FRY MD ([email or web address]) on 06/06/25 at 06:51. Electronically submitted by Nathalia Dodson ([facility]). ABIGAIL FRY MD Jun 06, 2025 06:51
[2025-06-06] MEDS: PROCHLORPERAZINE EDISYLATE 5 MG/ML 2ML VIAL IV ONE (07:33)
[2025-06-06] MEDS: PANTOPRAZOLE 40 MG/10 ML VIAL INJ IV ONE (07:33)
[2025-06-06] MEDS: MORPHINE SULFATE INJ 2 MG/ml SYRG IV ONE (07:36)
--- NOTE | 2025-06-06 07:38 | DVH ---
CLINICAL INFORMATION: Pain. TECHNIQUE: Axial CT images of the abdomen and pelvis were obtained without IV contrast. Coronal and sagittal reformatted images were obtained, reviewed, and stored. Evaluation of the parenchymal organs is limited without IV contrast. Evaluation of the bowel and mesentery is limited without oral contrast. All CT scans at this medical facility are performed using dose modulation techniques as appropriate to a performed exam including the following: Automated exposure control was utilized; adjustment of the MA and/or KV according to patient size; and use of iterative reconstruction technique. CTDIvol = 6.98 mGy DLP = 340.72 mGy-cm COMPARISON: CT CT AB PEL WO CON-NO ORAL OR IV on DOS: 06/30/24 FINDINGS: Lung bases: Lung bases are clear. Small nodule adjacent to the left side of the distal esophagus, possible paraesophageal lymph node measuring up to 1.2 x 0.5 cm. Mild circumferential thickening of the wall of the distal esophagus Liver: Grossly unremarkable in its noncontrast enhanced appearance. No abnormal density or focal lesion identified. Biliary: No calcified gallstones or biliary ductal dilatation. Spleen: Unremarkable. Pancreas: Grossly unremarkable in its noncontrast enhanced appearance. Adrenal glands: Unremarkable. No mass. Kidneys: No hydronephrosis. No renal or ureteral calculi. Aorta/Vascular: No aneurysm or significant calcification. Lymph nodes: No mass or lymphadenopathy. Bowel/mesentery: No small bowel obstruction. No free air or free fluid. Appendix is visualized and appears unremarkable. There is a small amount of GI contrast in the colon, likely from previous GI contrast exam. Pelvic organs: Grossly unremarkable. Bladder: Underdistended and suboptimally evaluated. Grossly unremarkable. Abdominal wall: Very small fat containing umbilical hernia. Bones: No acute fracture or suspicious intraosseous lesion. IMPRESSION: 1. Very small fat containing umbilical hernia. 2. Small nodule adjacent to the distal esophagus, possible paraesophageal lymph node, measuring less than 1 cm in short axis dimension, likely reactive lymph node. Correlate with clinical findings. Mild circumferential thickening of the wall of the distal esophagus, may be sequelae of prior inflammation. Other etiologies, including neoplasm/ malignancy would be less likely but not completely excluded in the appropriate clinical setting. Correlate with clinical findings.
[2025-06-06] MEDS: SODIUM CHLORIDE 0.9% 1,000 ML IVB ONE (07:40)
[2025-06-06 07:41] LABS: Anion Gap 19 (5-15)
[2025-06-06 07:42] LABS: Calcium 10.1 mg/dL (8.7-10.4)
[2025-06-06 07:44] LABS: Hematocrit 52.9 % (41.0-53.0); Hemoglobin 17.7 g/dL (13.5-17.5); Mean Corpuscular Hemoglobin 29.4 pg (28.0-32.0); Mean Corpuscular Volume 87.7 fL (80.0-100.0); Nucleated Red Blood Cells % 0.0 %
[2025-06-06 07:47] LABS: BUN/Creatinine Ratio 9.7 (10.0-20.0); Blood Urea Nitrogen 15 mg/dL (9-23)
[2025-06-06 07:48] LABS: Carbon Dioxide 20 mmol/L (20-31); Chloride 91 mmol/L (98-107); Glucose 187 mg/dL (74-106); Potassium 3.0 mmol/L (3.5-5.1); Sodium 130 mmol/L (136-145)
[2025-06-06 08:30] VITALS: PULSE 98; RESP 14; O2SAT 97
[2025-06-06 08:36] LABS: Lipase 59 U/L (12-53)
[2025-06-06] MEDS ORDERED: DOCUSATE SOD 100 MG CAP PO PRN (12:45)
[2025-06-06] MEDS ORDERED: PROCHLORPERAZINE EDISYLATE 5 MG/ML 2ML VIAL IV PRN (12:45)
[2025-06-06] MEDS: SODIUM CHLORIDE 0.9% 1,000 ML IV SCH (12:45)
[2025-06-06] MEDS ORDERED: ACETAMINOPHEN 325 MG TAB PO PRN (12:45)
[2025-06-06] MEDS ORDERED: ONDANSETRON HCL 4 MG/2 ML VIAL IV PRN (12:45)
[2025-06-06] MEDS: POTASSIUM CHL 20MEQ/100ML 100 ML IV ONE (12:46)
--- NOTE | 2025-06-06 12:49 | DVHHP2 ---
Admitting Diagnosis: Abdominal pain History of Present Illness 40 y/o male patient presents with c/o abdominal pain. Patient also endorses nausea, vomiting, and constipation. Patient admits to daily cannabis use and occasional EtOH use. While in the emergency department the patient was evaluated by the provider, As per provider: Labs, vital signs, and imagining monitored. Patient will be admitted for further evaluation and treatment. I discussed admission with the patient/family and is in agreement to treatment plan. Patient Family History: Cardiovascular disease G8 FATHER, FHx: cancer G8 MOTHER FHx: heart failure G8 FATHER, Allergies: Coded Allergies: NO KNOWN ALLERGIES (Unverified , 10/29/14) Home Meds Active Scripts Sucralfate (CARAFATE) 1 Gm Tab, 1 GM PO QID, #120 TAB Prov:SALINAS GILLETTE MD 07/04/24 Pantoprazole Sodium Sesquihydr (Pantoprazole Sodium) 40 Mg Tab, 40 MG PO BID, #60 TAB Prov:SALINAS GILLETTE MD 07/04/24 Ferrous Sulfate (Iron) 325 Mg Tab, 325 MG PO BID, #180 TAB Prov:SALINAS GILLETTE MD 07/04/24 Metronidazole (Flagyl) 500 Mg Tab, 1 TAB PO TID, #30 TAB Prov:SALINAS GILLETTE MD 07/04/24 Levofloxacin Hemihydrate (LEVAQUIN 500 MG) 500 Mg Tab, 1 TAB PO DAILY, #7 TAB Prov:SALINAS GILLETTE MD 07/04/24 Current Medications Current Medications Medications (Trade) Dose Ordered Sig/Janine Route PRN Reason Start Time Stop Time Status Last Admin Sodium Chloride 1,000 ml @ 120 mls/hr Q8H20M IV 06/06/25 12:45 06/06/25 12:45 Acetaminophen/ Hydrocodone Bitart ([place] 5/325MG Tab) 1 tab Q4HP PRN PO MODERATE PAIN (4-6 PAIN SCALE) 06/06/25 12:45 06/06/25 21:16 Temazepam (Restoril) 15 mg QHSP PRN PO FOR INSOMNIA 06/06/25 12:45 06/06/25 21:15 Ondansetron HCl (Zofran) 4 mg Q4HP PRN IV NAUSEA / VOMITING 06/06/25 12:45 Docusate Sodium (Colace Capsule) 100 mg BIDPRN PRN PO FOR CONSTIPATION 06/06/25 12:45 Enoxaparin Sodium (Lovenox) 40 mg DAILY SC 06/07/25 10:00 Acetaminophen (Tylenol Tablet) 650 mg Q6HP PRN PO PAIN SCALE 1-3 OR TEMP>100.4 06/06/25 12:45 Morphine Sulfate 2 mg Q4HPRN PRN IV SEVERE PAIN (7-10 PAIN SCALE) 06/06/25 12:45 Prochlorperazine Edisylate (Compazine Inj) 10 mg Q6HP PRN IV NAUSEA / VOMITING 06/06/25 12:45 Pantoprazole Sodium (Protonix) 40 mg DAILY IV 06/06/25 13:00 06/06/25 14:58 Lactulose 30 ml BID PO 06/06/25 13:00 06/06/25 14:58 Review of Systems Constitutional: denies chills, denies fever, denies malaise Eyes: denies eye pain, denies vision change ENT: denies ear pain, denies headache, denies nasal congestion, denies painful swallowing, denies voice change Cardiovascular: denies chest pain, denies edema, denies orthopnea, denies palpitations, denies paroxysmal nocturnal dyspnea Respiratory: denies cough, denies shortness of breath Genitourinary: denies dysuria, denies frequent urination, denies urethral discharge Musculoskeletal: denies back pain, denies joint pain, denies muscle pain Skin: denies bruising, denies itching, denies rash Neurological: denies focal weakness, denies headache, denies sensory changes Psychiatric: denies anxiety, denies depression Endocrine: denies polydipsia, denies polyuria Hematologic/Lymphatic: denies easy bleeding, denies easy bruising, denies enlarged lymph nodes Allergic/Immunologic: denies allergy, denies hives Vital Signs Vital Signs Date Time Temp Pulse Resp B/P (MAP) Pulse Ox O2 Delivery O2 Flow Rate FiO2 06/06/25 21:00 98.2 74 19 131/77 (95) 97 98.2 06/06/25 17:43 Room Air* 0 21 Physical Exam General Appearance: alert, no distress HEENT: EOMI, PERRLA, normal external inspect of ears, no icterus, no nasal drainage Neck: no carotid bruit, no jugular venous distention (JVD), no lymphadenopathy Chest: normal thorax Respiratory: clear to auscultation, normal air movement Cardiovascular: regular rate and rhythm, no diastolic murmur, no jugular venous distention (JVD), no rub, no systolic murmur Abdominal: soft, no hepatomegaly, no mass, no splenomegaly Genitourinary: grossly normal external Musculoskeletal: no joint tenderness, no swelling Extremities: normal pulses, no calf tenderness, no clubbing, no cyanosis, no edema Skin: no bruising, no jaundice, no rash Neurological: alert, No focal deficit SEPSIS Sepsis Screen Date sepsis recognized/suspect: Jun 06, 2025 Time Sepsis recognized/suspect: 829 Recent Procedure: No On Antibiotic Therapy: No Respiratory Rate >20: No Heart Rate >90: Yes Temp<36 C (96.8 F) or >38.3 C: No SBP <90 or MAP <65 mmHG: No New Acute Mental Status Change: No Is the patient on CPAP, BIPAP,: No Physician Orders Heplock Iv (06/06/25 06:45) Ct Ab Pel Wo Con-No Oral Or Iv (06/06/25 06:47) Admit (06/06/25 12:45) Code Status (06/06/25 12:45) Sodium Chloride 0.9% (06/06/25 12:45) Hydrocodone-Acet 5/325mg Tab ([place] 5/32 (06/06/25 12:45) Temazepam (Restoril) (06/06/25 12:45) Ondansetron Hcl (Zofran) (06/06/25 12:45) Docusate Sodium Capsule (Colace Capsule) (06/06/25 12:45) Enoxaparin Sodium (Lovenox) (06/07/25 10:00) Complete Blood Count (06/07/25 04:00) Comprehensive Metabolic Panel (06/07/25 04:00) Cardiac Diet-2gna,Lofat,Lochol (06/06/25 Lunch) Condition: Stable (06/06/25 12:45) Acetaminophen Tablet (Tylenol Tablet) (06/06/25 12:45) Morphine Sulfate Injection (06/06/25 12:45) Sequential Compression Device (06/06/25 ) Prochlorperazine Inj (Compazine Inj) (06/06/25 12:45) * [facility] Physician Liaison (06/06/25 12:47) Pantoprazole (Protonix) (06/06/25 13:00) Drug Screen (06/06/25 12:54) Lactulose Oral (06/06/25 13:00) Vital Signs Date Time Temp Pulse Resp B/P (MAP) Pulse Ox O2 Delivery O2 Flow Rate FiO2 06/06/25 21:00 98.2 74 19 131/77 (95) 97 98.2 06/06/25 17:43 16 Room Air* 0 21 06/06/25 17:43 16 06/06/25 17:10 98.3 120 16 128/95 (106) 93 98.3 06/06/25 16:00 98.0 84 18 134/81 (98) 97 98.0 06/06/25 14:00 84 12 157/89 (111) 96 06/06/25 12:00 80 13 108/73 (85) 98 06/06/25 10:00 90 15 113/73 (86) 97 06/06/25 08:30 98 14 135/97 06/06/25 08:30 98 14 97 Room Air* 0 21 06/06/25 08:30 98.2 98 14 135/97 (110) 97 98.2 06/06/25 07:36 106 17 130/96 06/06/25 07:25 98.0 106 17 130/96 (107) 98 98.0 06/06/25 06:32 97.8 115 20 124/102 95 97.8 Laboratory Tests Test 06/06/25 06:55 White Blood Count 6.7 10^3/uL (4.4-10.8) Medications Medications Dose Ordered Sig/Janine Route Start Time Stop Time Status Last Admin Dose Admin Acetaminophen/ Hydrocodone Bitart 1 tab Q4HP PRN PO 06/06/25 12:45 06/06/25 21:16 Lactulose 30 ml BID PO 06/06/25 13:00 06/06/25 14:58 Pantoprazole Sodium 40 mg DAILY IV 06/06/25 13:00 06/06/25 14:58 Potassium Chloride 100 ml @ 50 mls/hr ONCE ONCE IV 06/06/25 12:45 06/06/25 14:44 DC 06/06/25 12:46 Sodium Chloride 1,000 ml @ 120 mls/hr Q8H20M IV 06/06/25 12:45 06/06/25 12:45 Temazepam 15 mg QHSP PRN PO 06/06/25 12:45 06/06/25 21:15 Results Labs Test 06/06/25 06:55 Range/Units White Blood Count 6.7 4.4-10.8 10^3/uL Red Blood Count 6.03 H 4.5-5.90 10^6/uL Hemoglobin 17.7 H 13.5-17.5 g/dL Hematocrit 52.9 41.0-53.0 % Mean Corpuscular Volume 87.7 80.0-100.0 fL Mean Corpuscular Hemoglobin 29.4 28.0-32.0 pg Mean Corpuscular Hemoglobin Concent 33.5 32.0-36.0 g/dL Red Cell Distribution Width 15.1 H 11.8-14.3 % Platelet Count 302 140-450 10^3/uL Mean Platelet Volume 8.8 6.9-10.8 fL Neutrophils (%) (Auto) 60.8 37.0-80.0 % Lymphocytes (%) (Auto) 29.9 10.0-50.0 % Monocytes (%) (Auto) 8.5 0.0-12.0 % Eosinophils (%) (Auto) 0.2 0.0-7.0 % Basophils (%) (Auto) 0.6 0.0-2.0 % Neutrophils # (Auto) 4.0 1.6-8.6 10 ^3/uL Lymphocytes # (Auto) 2.0 0.4-5.4 10 ^3/uL Monocytes # (Auto) 0.6 0-1.3 10 ^3/uL Eosinophils # (Auto) 0 0-0.8 10 ^3/uL Basophils # (Auto) 0 0-0.2 10 ^3/uL Nucleated Red Blood Cells 0.0 % Sodium Level 130 L 136-145 mmol/L Potassium Level 3.0 L 3.5-5.1 mmol/L Chloride Level 91 L 98-107 mmol/L Carbon Dioxide Level 20 20-31 mmol/L Anion Gap 19 H 5-15 Blood Urea Nitrogen 15 9-23 mg/dL Creatinine 1.54 H 0.700-1.30 mg/dL Glomerular Filtration Rate Calc 57 >90 mL/min BUN/Creatinine Ratio 9.7 L 10.0-20.0 Serum Glucose 187 H 74-106 mg/dL Calcium Level 10.1 8.7-10.4 mg/dL Lipase 59 H 12-53 U/L Plan 1. Cannabis hyperemesis Monitor, antiemetics, IV fluids 2. Intractable nausea and vomiting Monitor, antiemetics, IV fluids 3. Gastritis Monitor 4. Constipation Monitor, cathartics Plan discussed with: Patient, Other JEANNIE PRATER SALES PRODUCT MANAGER Jun 06, 2025 12:49
[2025-06-06] MEDS: PANTOPRAZOLE 40 MG/10 ML VIAL INJ IV SCH (14:58)
[2025-06-06] MEDS: LACTULOSE 20Gm/30ML SOLN PO SCH (14:58)
[2025-06-06 17:10] VITALS: BP 128/95; PULSE 120; RESP 16; TEMP 98.3; O2SAT 93
[2025-06-06 17:43] VITALS: RESP 16
[2025-06-06 20:00] VITALS: PULSE 74; RESP 19; O2SAT 97
[2025-06-06 21:00] VITALS: BP 131/77; PULSE 74; RESP 19; TEMP 98.2; O2SAT 97
[2025-06-06] MEDS: TEMAZEPAM 15 MG CAP PO PRN (21:15)
[2025-06-06] MEDS: HYDROcodone-ACET 5/325MG TAB PO PRN (21:16)
[2025-06-07] VITALS (8 sets, daily range): BP systolic 93–136; BP diastolic 54–94; PULSE 73–95; RESP 18–20; TEMP 98.2–98.9; O2SAT 95–100
[2025-06-07 07:19] LABS: Hematocrit 38.4 % (41.0-53.0); Hemoglobin 12.9 g/dL (13.5-17.5); Mean Corpuscular Hemoglobin 30.0 pg (28.0-32.0); Mean Corpuscular Volume 89.6 fL (80.0-100.0); Nucleated Red Blood Cells % 0.2 %
[2025-06-07 07:35] LABS: Alanine Aminotransferase 21 U/L (7-40); Albumin 3.5 g/dL (3.2-4.8); Alkaline Phosphatase 59 U/L (46-116); Anion Gap 10 (5-15); BUN/Creatinine Ratio 7.9 (10.0-20.0); Carbon Dioxide 27 mmol/L (20-31); Chloride 102 mmol/L (98-107); Glucose 98 mg/dL (74-106); Sodium 139 mmol/L (136-145)
[2025-06-07 07:36] LABS: Bilirubin, Total 0.9 mg/dL (0.2-1.0); Blood Urea Nitrogen 8 mg/dL (9-23); Calcium 8.6 mg/dL (8.7-10.4); Potassium 3.3 mmol/L (3.5-5.1); Total Protein 5.3 g/dL (5.7-8.2)
--- NOTE | 2025-06-07 09:48 | DVHPN2 ---
Progress Note - Dictate Date Seen: Jun 07, 2025 Medical Necessity Reason Pt with a Central, PICC or Fol: No vital signs Vital Sign Date Time Temp Pulse Resp B/P (MAP) Pulse Ox O2 Delivery O2 Flow Rate FiO2 06/07/25 08:56 98.6 95 20 129/89 (102) 99 98.6 06/06/25 20:00 Room Air* 0 21 Total Intake and Output 06/06/25 06/06/25 06/07/25 15:00 23:00 07:00 Intake Total 1460 ml 120 ml 550 ml Balance 1460 ml 120 ml 550 ml medications Current Medications Medications Dose Ordered Sig/Janine Route Start Time Stop Time Status Last Admin Dose Admin Sodium Chloride 1,000 ml @ 120 mls/hr Q8H20M IV 06/06/25 12:45 06/07/25 05:25 120 MLS/HR Acetaminophen/ Hydrocodone Bitart 1 tab Q4HP PRN PO 06/06/25 12:45 06/06/25 21:16 1 TAB Temazepam 15 mg QHSP PRN PO 06/06/25 12:45 06/06/25 21:15 15 MG Ondansetron HCl 4 mg Q4HP PRN IV 06/06/25 12:45 Docusate Sodium 100 mg BIDPRN PRN PO 06/06/25 12:45 Enoxaparin Sodium 40 mg DAILY SC 06/07/25 10:00 Acetaminophen 650 mg Q6HP PRN PO 06/06/25 12:45 Morphine Sulfate 2 mg Q4HPRN PRN IV 06/06/25 12:45 Prochlorperazine Edisylate 10 mg Q6HP PRN IV 06/06/25 12:45 Pantoprazole Sodium 40 mg DAILY IV 06/06/25 13:00 06/06/25 14:58 40 MG Lactulose 30 ml BID PO 06/06/25 13:00 06/06/25 14:58 30 ML laboratory and microbiology Laboratory Tests 06/07/25 05:58 Test 06/07/25 05:58 Range/Units Serum Glucose 98 74-106 mg/dL Problem List 1. Cannabis hyperemesis Monitor, antiemetics, IV fluids 2. Intractable nausea and vomiting Monitor, antiemetics, IV fluids 3. Gastritis Monitor 4. Constipation Monitor, cathartics Assessment/Plan Subjective Patient is awake and alert. Objective Patient is doing much better today. Nausea and vomiting has resolved. Patient was in admitted for intractable nausea and abdominal pain. Patient found to have a thickened esophagus and mildly elevated lipase levels. Patient seen by GI. Patient states he has a history of GERD with a hiatal hernia. 1 year ago he had a history of EtOH abuse. Patient has anemia of chronic disease. Plan Continue PPI. GI evaluation. Patient had STELLA with [facility]. Kidney function is normal now after IV hydration. Advance diet and GI recommendations appreciated. Plan discussed with: Patient, Other JEANNIE PRATER NP Jun 07, 2025 09:48
[2025-06-07] MEDS: ENOXAPARIN SOD 40 MG/0.4 ML SYRINGE SC SCH (10:36)
[2025-06-07] MEDS: POTASSIUM CHLORIDE 40 MEQ, LIDOCAINE 1% (LOCAL ANESTH.) 4 ML in SODIUM CHL 0.9% 250 ML IV ONE (10:37)
[2025-06-07] MEDS: MORPHINE SULFATE INJ 2 MG/ml SYRG IV PRN (10:40)
--- NOTE | 2025-06-07 17:56 | DVHINCON2 ---
Date of service: Jun 07, [address] steele Reason for Consultation Abdominal pain nausea vomiting and some diarrhea and abdominal CAT scan History of Present Illness This 40-year-old male presented to the emergency room with complaints of abdominal pain which was diffuse especially with the nausea and vomiting. Also had some problems with bowel movement with diarrhea to be with an tended to constipation. No gross GI bleeding patient takes marijuana Anaplasma ethanol abuse Patient has got history of similar problems in June which showed there was evidence of esophageal ulcer and severe esophagitis. Past Medical History History of severe GERD Past Surgical History None Family History: Cardiovascular disease G8 FATHER, FHx: cancer G8 MOTHER GRANDFATHER GRANDMOTHER UNCLE AUNT FHx: heart failure G8 FATHER, Family History Family history of cancer Social History History of heavy smoking and drinking and marijuana Allergies: Coded Allergies: NO KNOWN ALLERGIES (Unverified , 10/29/14) Home Meds Active Scripts Sucralfate (CARAFATE) 1 Gm Tab, 1 GM PO QID, #120 TAB Prov:SALINAS GILLETTE MD 07/04/24 Pantoprazole Sodium Sesquihydr (Pantoprazole Sodium) 40 Mg Tab, 40 MG PO BID, #60 TAB Prov:SALINAS GILLETTE MD 07/04/24 Ferrous Sulfate (Iron) 325 Mg Tab, 325 MG PO BID, #180 TAB Prov:SALINAS GILLETTE MD 07/04/24 Metronidazole (Flagyl) 500 Mg Tab, 1 TAB PO TID, #30 TAB Prov:SALINAS GILLETTE MD 07/04/24 Levofloxacin Hemihydrate (LEVAQUIN 500 MG) 500 Mg Tab, 1 TAB PO DAILY, #7 TAB Prov:SALINAS GILLETTE MD 07/04/24 Current Medications Current Medications Medications (Trade) Dose Ordered Sig/Janine Route PRN Reason Start Time Stop Time Status Last Admin Enoxaparin Sodium (Lovenox) 40 mg DAILY SC 06/07/25 10:00 06/07/25 10:36 Review of Systems Noncontributory Vital Signs Vital Signs Date Time Temp Pulse Resp B/P (MAP) Pulse Ox O2 Delivery O2 Flow Rate FiO2 06/07/25 16:58 98.3 86 20 136/94 (108) 100 98.3 06/07/25 08:00 Room Air* 0 21 Physical Exam Moderately built and nourished male in no acute distress Vitals stable Lungs are clear Cardiovascular unremarkable Abdomen is soft mild tenderness in the epigastrium no rigidity no guarding no masses Extremities no edema Neuro grossly intact Labs/Diagnostic Data Labs Test 06/07/25 05:58 06/06/25 06:55 Range/Units White Blood Count 5.6 4.4-10.8 10^3/uL Red Blood Count 4.29 L 4.5-5.90 10^6/uL Hemoglobin 12.9 #L 13.5-17.5 g/dL Hematocrit 38.4 #L 41.0-53.0 % Mean Corpuscular Volume 89.6 80.0-100.0 fL Mean Corpuscular Hemoglobin 30.0 28.0-32.0 pg Mean Corpuscular Hemoglobin Concent 33.5 32.0-36.0 g/dL Red Cell Distribution Width 14.6 H 11.8-14.3 % Platelet Count 199 140-450 10^3/uL Mean Platelet Volume 8.9 6.9-10.8 fL Neutrophils (%) (Auto) 53.5 37.0-80.0 % Lymphocytes (%) (Auto) 36.5 10.0-50.0 % Monocytes (%) (Auto) 8.9 0.0-12.0 % Eosinophils (%) (Auto) 0.5 0.0-7.0 % Basophils (%) (Auto) 0.6 0.0-2.0 % Neutrophils # (Auto) 3.0 1.6-8.6 10 ^3/uL Lymphocytes # (Auto) 2.1 0.4-5.4 10 ^3/uL Monocytes # (Auto) 0.5 0-1.3 10 ^3/uL Eosinophils # (Auto) 0 0-0.8 10 ^3/uL Basophils # (Auto) 0 0-0.2 10 ^3/uL Nucleated Red Blood Cells 0.2 % Sodium Level 139 # 136-145 mmol/L Potassium Level 3.3 L 3.5-5.1 mmol/L Chloride Level 102 # 98-107 mmol/L Carbon Dioxide Level 27 20-31 mmol/L Anion Gap 10 5-15 Blood Urea Nitrogen 8 L 9-23 mg/dL Creatinine 1.01 0.700-1.30 mg/dL Glomerular Filtration Rate Calc 95 >90 mL/min BUN/Creatinine Ratio 7.9 L 10.0-20.0 Serum Glucose 98 74-106 mg/dL Calcium Level 8.6 L 8.7-10.4 mg/dL Total Bilirubin 0.9 0.2-1.0 mg/dL Aspartate Amino Transferase (AST) 19 13-40 U/L Alanine Aminotransferase (ALT) 21 7-40 U/L Alkaline Phosphatase 59 46-116 U/L Total Protein 5.3 L 5.7-8.2 g/dL Albumin 3.5 3.2-4.8 g/dL Lipase 59 H 12-53 U/L Assessment 40-year-old male with complaints of abdominal pain nausea vomiting as well as some diarrhea which is better now with the diarrhea with very into constipation now history of severe GERD in the past as well as esophageal ulcers patient had a CT scan done which showed there was disease thickening of the distal esophagus and lymph nodes adjacent to the esophagus Denies any hematemesis or melena No weight loss No dysphagia but has got persistent nausea and vomiting Suggestions for possibilities severe esophagitis possible esophageal lesion including Velázquez's or esophageal malignancy can not be excluded Plan/Recommendation We will recommend EGD evaluation especially in view of the circumferential na rrowing of the distal esophagus with a lymph node and history of esophagitis with ulcers in the past. Thank you Dr. wilson Plan discussed with: Patient IRISH WILSON MD Jun 07, 2025 17:56
[2025-06-08] VITALS (7 sets, daily range): BP systolic 98–128; BP diastolic 56–95; PULSE 63–89; RESP 4–20; TEMP 97.3–98.6; O2SAT 97–100
[2025-06-08] MEDS ORDERED: LIDOCAINE VISCOUS 2% 15ML UD ONE (11:45)
[2025-06-08] MEDS: MIDAZOLAM HCL 2MG/2ML 2ml VIAL (1mg/ml) ONE (11:52)
[2025-06-08] MEDS: fentaNYL CITRATE 100 MCG/2 ML VL ONE (11:52)
[2025-06-08 15:52] LABS: Hematocrit 41.0 % (41.0-53.0); Hemoglobin 13.4 g/dL (13.5-17.5); Mean Corpuscular Hemoglobin 29.9 pg (28.0-32.0); Mean Corpuscular Volume 91.5 fL (80.0-100.0); Nucleated Red Blood Cells % 0.1 %
[2025-06-08 16:07] LABS: INR 0.97 (0.9-1.15); Partial Thromboplastin Time 27.0 SEC (24.5-34.5); Prothrombin Time 10.3 sec (9.3-11.8)
[2025-06-08 16:10] LABS: Alanine Aminotransferase 23 U/L (7-40); Albumin 4.0 g/dL (3.2-4.8); Alkaline Phosphatase 64 U/L (46-116); Anion Gap 10 (5-15); Bilirubin, Total 0.4 mg/dL (0.2-1.0); Calcium 9.2 mg/dL (8.7-10.4); Carbon Dioxide 27 mmol/L (20-31); Chloride 106 mmol/L (98-107); Potassium 3.6 mmol/L (3.5-5.1); Sodium 143 mmol/L (136-145); Total Protein 6.3 g/dL (5.7-8.2)
--- NOTE | 2025-06-08 16:18 | DVHPN2 ---
Progress Note - Dictate Date Seen: Jun 08, 2025 Medical Necessity Reason Pt with a Central, PICC or Fol: No vital signs Vital Sign Date Time Temp Pulse Resp B/P (MAP) Pulse Ox O2 Delivery O2 Flow Rate FiO2 06/08/25 12:40 75 18 115/75 (88) 06/08/25 12:35 98 06/08/25 12:15 97.4 97.4 06/08/25 12:15 Mask 4.0 96 Total Intake and Output 06/07/25 06/07/25 06/08/25 15:00 23:00 07:00 Intake Total 1798 ml 1400 ml 1400 ml Balance 1798 ml 1400 ml 1400 ml medications Current Medications Medications Dose Ordered Sig/Janine Route Start Time Stop Time Status Last Admin Dose Admin Sodium Chloride 1,000 ml @ 120 mls/hr Q8H20M IV 06/06/25 12:45 06/08/25 06:32 120 MLS/HR Acetaminophen/ Hydrocodone Bitart 1 tab Q4HP PRN PO 06/06/25 12:45 06/07/25 21:01 1 TAB Temazepam 15 mg QHSP PRN PO 06/06/25 12:45 06/07/25 21:02 15 MG Ondansetron HCl 4 mg Q4HP PRN IV 06/06/25 12:45 Docusate Sodium 100 mg BIDPRN PRN PO 06/06/25 12:45 Enoxaparin Sodium 40 mg DAILY SC 06/07/25 10:00 06/07/25 10:36 40 MG Acetaminophen 650 mg Q6HP PRN PO 06/06/25 12:45 Morphine Sulfate 2 mg Q4HPRN PRN IV 06/06/25 12:45 06/07/25 10:40 2 MG Prochlorperazine Edisylate 10 mg Q6HP PRN IV 06/06/25 12:45 Pantoprazole Sodium 40 mg BID@0600,1700 PO 06/08/25 17:00 Sucralfate 1 gm BID@0600,2200 GT 06/08/25 22:00 objective General Appearance: alert, no distress HEENT: EOMI, PERRLA, normal external inspect of ears, no icterus, no nasal drainage Neck: no carotid bruit, no jugular venous distention (JVD), no lymphadenopathy Chest: normal thorax Respiratory: clear to auscultation, normal air movement Cardiovascular: regular rate and rhythm, no diastolic murmur, no jugular venous distention (JVD), no rub, no systolic murmur Abdominal: soft, no hepatomegaly, no mass, no splenomegaly, no tenderness Genitourinary: grossly normal external Musculoskeletal: no joint tenderness, no swelling Extremities: normal pulses, no calf tenderness, no clubbing, no cyanosis, no edema Skin: no bruising, no jaundice, no rash Neurological: alert, No focal deficit laboratory and microbiology Laboratory Tests 06/08/25 15:29 Test 06/08/25 15:29 Range/Units Serum Glucose Pending Problem List 1. Cannabis hyperemesis Monitor, antiemetics, IV fluids 2. Intractable nausea and vomiting Monitor, antiemetics, IV fluids 3. Gastritis Monitor 4. Constipation Monitor, cathartics Assessment/Plan Subjective: Patient is awake and alert. Objective: Patient was admitted for intractable nausea, vomiting, and abdominal pain. He was found to have a thickened esophagus and is status post EGD, currently still in the recovery room. There may also be a component of cannabis hyperemesis, as he uses cannabis chronically. Patient also has severe GERD. He is recovering from STELLA with [facility]. Plan: Continue PPI with Protonix twice daily. Continue Carafate. Appreciate GI recommendations. Advance diet as tolerated. Continue discharge planning. Plan discussed with: Patient, Other JEANNIE PRATER NP Jun 08, 2025 16:17
[2025-06-08 16:20] LABS: BUN/Creatinine Ratio 5.9 (10.0-20.0); Blood Urea Nitrogen < 5 mg/dL (9-23); Glucose 131 mg/dL (74-106)
[2025-06-08] MEDS: PANTOPRAZOLE 40 MG TAB PO SCH (17:07)
[2025-06-08] MEDS: SUCRALFATE 1 GM/10 ML ORAL SUSP GT SCH (21:05)
[2025-06-09 05:00] VITALS: BP 122/78
[2025-06-09] MEDS ORDERED: METR-344 PO (07:39)
[2025-06-09] MEDS ORDERED: SUCR1TAB31 OR (07:39)
[2025-06-09] MEDS ORDERED: PANT40TA2 PO (07:39)
--- NOTE | 2025-06-09 08:02 | DVHDS2 ---
Discharge Summary Date of Admission Jun 06, 2025 at 12:45 Date of Discharge: Jun 09, 2025 Labs/Diagnostic Data: Laboratory Results Test 06/08/25 15:29 06/06/25 06:55 White Blood Count 4.5 10^3/uL (4.4-10.8) Red Blood Count 4.48 10^6/uL (4.5-5.90) Hemoglobin 13.4 g/dL (13.5-17.5) Hematocrit 41.0 % (41.0-53.0) Mean Corpuscular Volume 91.5 fL (80.0-100.0) Mean Corpuscular Hemoglobin 29.9 pg (28.0-32.0) Mean Corpuscular Hemoglobin Concent 32.6 g/dL (32.0-36.0) Red Cell Distribution Width 14.7 % (11.8-14.3) Platelet Count 197 10^3/uL (140-450) Mean Platelet Volume 9.0 fL (6.9-10.8) Neutrophils (%) (Auto) 46.4 % (37.0-80.0) Lymphocytes (%) (Auto) 45.5 % (10.0-50.0) Monocytes (%) (Auto) 6.1 % (0.0-12.0) Eosinophils (%) (Auto) 0.7 % (0.0-7.0) Basophils (%) (Auto) 1.3 % (0.0-2.0) Neutrophils # (Auto) 2.1 10 ^3/uL (1.6-8.6) Lymphocytes # (Auto) 2.0 10 ^3/uL (0.4-5.4) Monocytes # (Auto) 0.3 10 ^3/uL (0-1.3) Eosinophils # (Auto) 0 10 ^3/uL (0-0.8) Basophils # (Auto) 0.1 10 ^3/uL (0-0.2) Nucleated Red Blood Cells 0.1 % Prothrombin Time 10.3 sec (9.3-11.8) Prothrombin Time INR 0.97 (0.9-1.15) Activated Partial Thromboplast Time 27.0 SEC (24.5-34.5) Sodium Level 143 mmol/L (136-145) Potassium Level 3.6 mmol/L (3.5-5.1) Chloride Level 106 mmol/L (98-107) Carbon Dioxide Level 27 mmol/L (20-31) Anion Gap 10 (5-15) Blood Urea Nitrogen < 5 mg/dL (9-23) Creatinine 0.85 mg/dL (0.700-1.30) Glomerular Filtration Rate Calc 111 mL/min (>90) BUN/Creatinine Ratio 5.9 (10.0-20.0) Serum Glucose 131 mg/dL (74-106) Calcium Level 9.2 mg/dL (8.7-10.4) Total Bilirubin 0.4 mg/dL (0.2-1.0) Aspartate Amino Transferase (AST) 21 U/L (13-40) Alanine Aminotransferase (ALT) 23 U/L (7-40) Alkaline Phosphatase 64 U/L (46-116) Total Protein 6.3 g/dL (5.7-8.2) Albumin 4.0 g/dL (3.2-4.8) Lipase 59 U/L (12-53) Other Laboratory Tests 06/08/25 15:29 Brief Hx & Hospital Course: 40 y/o male patient presents with c/o abdominal pain. Patient also endorses nausea, vomiting, and constipation. Patient admits to daily cannabis use and occasional EtOH use. While in the emergency department the patient was evaluated by the provider, As per provider: Labs, vital signs, and imagining monitored. Patient was admitted for abdominal pain. Patient was seen by GI. Cannot exclude cannabis hyperemesis due to chronic cannabis use. Patient also has a history GERD. Patient is status post EGD. No active signs or symptoms of bleeding was found. Patient was found to have gastritis. He is to continue Protonix and Carafate outpatient and to follow-up with Dr. Jeter in 3 months. The patient received proper medical treatment and medications. Vital signs, Imaging and Laboratory Work was monitored daily. All consults recommendations were followed as provided. There were no complaints or new complaints upon discharge, all questions and concerns were answered. Patient was advised to return to the ER or call 911 if any headaches, dizziness, shortness of breath, chest pain, bleeding, fevers, or worsening of medical condition. Patient/Family was counseled about treatment plan, medications, possible side effects, patient verbalized understanding. All questions were answered to the best of my ability. The patient symptoms improved and they are okay to be DC. Condition at Discharge: Good Final Diagnosis/Problems List Cannabis hyperemesis Intractable nausea and vomiting Gastritis Constipation Discharge Disposition: Home Discharge Instruct/Medications Scheduled Ferrous Sulfate (Iron), 325 MG PO BID Levofloxacin Hemihydrate (Levaquin 500 Mg), 1 TAB PO DAILY Metronidazole (Flagyl), 1 TAB PO TID Pantoprazole Sodium Sesquihydr (Pantoprazole Sodium), 40 MG PO BID Pantoprazole Sodium Sesquihydr (Protonix), 40 MG PO BID Sucralfate (Carafate), 1 GM PO QID Sucralfate (Carafate), 1 GM OR QID Discontinued Medications Metronidazole (Flagyl), 1 TAB PO TID Discharge Statement: "Patient was advised to return to the ER or call 911 if any headaches, dizziness, shortness of breath, chest pain, abdominal pain, bleeding, fevers, or worsening of medical condition. Patient was counseled about treatment plan, medications, possible side effects, patientverbalized understanding. All questions were answered to the best of my ability. This discharge took greater then 30 minutes in planning, reviewing documentation, counseling the patient, and discussing with other team members." ASSESSMENT ASSESSMENT Assessment JEANNIE PRATER NP Jun 09, 2025 08:02
[2025-06-09 09:13] VITALS: BP 117/81; PULSE 76; RESP 14; TEMP 97.7; O2SAT 100
[2025-06-09 11:30] VITALS: BP 117/81; PULSE 76; RESP 14; TEMP 36.5; O2SAT 100
[2025-06-09 12:32] VITALS: BP 121/84; PULSE 109; RESP 20; TEMP 96.6; O2SAT 98
== END 2025-06-09 12:00 | disposition home or self-care (01) | DRG 241 ==
LOC: ER 06:23 → OVERFLOW 12:45 → CENTRAL 17:01
PROVIDERS: ADMIT Nurse Practitioner; ATTEND Nurse Practitioner
PROC: 0DB68ZX Excision of Stomach, Via Natural or Artificial Opening Endoscopic, Diagnostic (ICD-10-PCS; 2025-06-08)
PROC: 0DB48ZX Excision of Esophagogastric Junction, Via Natural or Artificial Opening Endoscopic, Diagnostic (ICD-10-PCS; principal; 2025-06-08 11:45)
DX: K29.70 Gastritis, unspecified, without bleeding (principal); N17.0 Acute kidney failure with tubular necrosis; E86.0 Dehydration; E87.6 Hypokalemia; F12.90 Cannabis use, unspecified, uncomplicated; K59.00 Constipation, unspecified; K21.9 Gastro-esophageal reflux disease without esophagitis; Z80.9 Family history of malignant neoplasm, unspecified; Z82.49 Family history of ischemic heart disease and other diseases of the circulatory system; Z87.891 Personal history of nicotine dependence; Z87.19 Personal history of other diseases of the digestive system
CPT/HCPCS: 36415; 43239; 74176; 80048; 80053; 83690; 85025; 85610; 85730; 88341; G0378; J2003; J2250; J2470; J3480